=== PATIENT | male | born 1990 | race Caucasian/White ===

== ENCOUNTER 2016-09-10 09:28 | Emergency (ER) | payer MEDICAID, OTHER ==
[~2016-09-10] VITALS: Ht 172.7 cm; Wt 110.0 kg
[~2016-09-10 09:28] MED LIST: CHLO.12%30 SSP; CLIN150 PO; IBUP800T23 PO
[2016-09-10 09:30] VITALS: BP 162/70; PULSE 82; RESP 15; TEMP 97.9; O2SAT 98
--- NOTE | 2016-09-10 09:40 | PD ---
HPI Chief Complaint: GI Complaint Time Seen by Provider: 09:40 Travel History International Travel<30 days: No Contact w/Intl Traveler<30days: No Traveled to known affect area: No History of Present Illness HPI 26-year-old male came to the emergency room with history of vomiting, diarrhea and abdominal pain for past 2 days. Patient says the pain is getting worse. Patient says he's having vomiting and diarrhea 6-7 times a day. The last episode was one hour ago. He points to the left upper and lower quadrant as the area of his pain. No other radiation of the pain. No aggravating or relieving factors identified. No blood in his stool. No history of fever or chills. Vital signs were stable. Patient appears to be in distress. He is otherwise a healthy person. [facility] Past Medical History Narrative Medical List of his past medical, surgical, social and family history was reviewed from the nursing note. Diminished Hearing: No Social History Alcohol Use: Yes (EVERY 2 WEEKS) Tobacco Use: Yes (1 CIG A DAY) Substance Use: No Allergies-Medications (Allergen,Severity, Reaction): Coded Allergies: No Known Allergies (Unverified , 09/10/16) Comments No known drug allergies. Reported Meds & Prescriptions Reported Meds & Active Scripts Active Bentyl (Dicyclomine HCl) 10 Mg Cap 10 Mg PO TID PRN Zofran Odt (Ondansetron Odt) 4 Mg Tab 4 Mg SL Q6HR PRN Narrative Medication List of his home medications reviewed from the nursing note. Review of Systems Except as stated in HPI: all other systems reviewed are Neg Physical Exam Narrative GENERAL: Awake, alert, moderate distress, obese SKIN: Focused skin assessment warm/dry. HEAD: Atraumatic. Normocephalic. EYES: Pupils equal and round. No scleral icterus. No injection or drainage. ENT: No nasal bleeding or discharge. Dry mucous membrane and coated tongue. NECK: Trachea midline. No JVD. CARDIOVASCULAR: Regular rate and rhythm. No murmur appreciated. RESPIRATORY: No accessory muscle use. Clear to auscultation. Breath sounds equal bilaterally. GASTROINTESTINAL: Abdomen soft, left lower quadrant tenderness, nondistended. Hepatic and splenic margins not palpable. MUSCULOSKELETAL: No obvious deformities. No clubbing. No cyanosis. No edema. NEUROLOGICAL: Awake and alert. No obvious cranial nerve deficits. Motor grossly within normal limits. Normal speech. PSYCHIATRIC: Appropriate mood and affect; insight and judgment normal. Data Data Last Documented VS Vital Signs Date Time Temp Pulse Resp B/P Pulse Ox O2 Delivery O2 Flow Rate FiO2 09/10/16 09:30 97.9 82 15 162/70 98 Orders Complete Blood Count With Diff (09/10/16 09:47) Comprehensive Metabolic Panel (09/10/16 09:47) Lipase (09/10/16 09:47) Ct Abd/Pel W/O Iv Contrast (09/10/16 09:47) Iv Access Insert/Monitor (09/10/16 09:47) Ecg Monitoring (09/10/16 09:47) Oximetry (09/10/16 09:47) Morphine Inj (Morphine Inj) (09/10/16 10:00) Ondansetron Inj (Zofran Inj) (09/10/16 10:00) Sodium Chlor 0.9% 1000 Ml Inj (Ns 1000 M (09/10/16 09:47) Sodium Chloride 0.9% Flush (Ns Flush) (09/10/16 10:00) Labs Laboratory Tests Test 09/10/16 09:45 White Blood Count 12.5 TH/MM3 Red Blood Count 6.09 MIL/MM3 Hemoglobin 15.7 GM/DL Hematocrit 48.2 % Mean Corpuscular Volume 79.2 FL Mean Corpuscular Hemoglobin 25.8 PG Mean Corpuscular Hemoglobin 32.6 % Concent Red Cell Distribution Width 14.2 % Platelet Count 386 TH/MM3 Mean Platelet Volume 7.1 FL Neutrophils (%) (Auto) 70.2 % Lymphocytes (%) (Auto) 20.9 % Monocytes (%) (Auto) 7.1 % Eosinophils (%) (Auto) 1.3 % Basophils (%) (Auto) 0.5 % Neutrophils # (Auto) 8.8 TH/MM3 Lymphocytes # (Auto) 2.6 TH/MM3 Monocytes # (Auto) 0.9 TH/MM3 Eosinophils # (Auto) 0.2 TH/MM3 Basophils # (Auto) 0.1 TH/MM3 CBC Comment DIFF FINAL Differential Comment Sodium Level 134 MEQ/L Potassium Level 3.3 MEQ/L Chloride Level 96 MEQ/L Carbon Dioxide Level 27.8 MEQ/L Anion Gap 10 MEQ/L Blood Urea Nitrogen 17 MG/DL Creatinine 1.05 MG/DL Estimat Glomerular Filtration 85 ML/MIN Rate Random Glucose 90 MG/DL Calcium Level 10.2 MG/DL Total Bilirubin 1.3 MG/DL Aspartate Amino Transf 345 U/L (AST/SGOT) Alanine Aminotransferase 582 U/L (ALT/SGPT) Alkaline Phosphatase 143 U/L Total Protein 8.1 GM/DL Albumin 4.3 GM/DL Lipase 50 U/L MDM Medical Decision Making Medical Screen Exam Complete: Yes Emergency Medical Condition: Yes Medical Record Reviewed: Yes Differential Diagnosis Acute diverticulitis, colitis, acute gastroenteritis Narrative Course 10:22 AM CBC is back and patient has some leukocytosis. Awaiting for the chemistry, UA and the CT scan to be done and resulted. Patient was given IV fluid bolus and medicated for pain. 10:52 AM based on the blood test result which shows significantly high liver function enzymes and bilirubin I went back and asked the patient how much he exactly drinks. He says that last night he drank 6 beers and a shot of moonshine. Patient says he used to drink heavy up until he was 24 years old. Now he does not drink every day but occasionally when he does he drinks very heavily. I have expressed to him my concerns regarding his drinking and his elevated liver enzymes. I don't think his liver enzymes and hepatis steatosis seen on the CT has anything to do with his abdominal pain today since they were all on the left side. Plus he has vomiting and diarrhea. I've also asked him not to take any medication that has Tylenol base in it. Patient understands. I am comfortable discharging him home. He has not had anymore episode of vomiting and diarrhea since. Procedures EKG Prior to Arrival: No Diagnosis Primary Impression: Acute gastroenteritis Additional Impressions: Colitis Alcoholic hepatitis Qualified Code: K70.10 - Alcoholic hepatitis without ascites Referrals: Primary Care Physician Additional Instructions: Please return to the ER if the condition worsens or any other new concerns. You should not be drinking any alcohol or any medication that has Tylenol in it since her liver functions are not doing good. You need to see your primary care in 3 weeks after complete alcohol abstinence to get your blood test repeated for liver function. Take the medications as per the prescription direction. Med/Other Pt SpecificInfo: Prescription(s) given Scripts Dicyclomine (Bentyl)10 Mg Cap10 Mg PO TID PRN (Bowel Management) #10 CAP Ref 0 Prov:Ana House MD 09/10/16 Ondansetron Odt (Zofran Odt)4 Mg Tab4 Mg SL Q6HR PRN (Nausea/Vomiting) #10 TAB Ref 0 Prov:Ana House MD 09/10/16 Disposition: 01 DISCHARGE HOME Condition: Stable Ana House MD Sep 10, 2016 09:40
[2016-09-10] MEDS ORDERED: SODIUM CHLOR 0.9% 1000 ML INJ 1,000 ML IV SCH (09:47)
[2016-09-10] MEDS ORDERED: ONDANSETRON HCL 4 MG/2 ML VIAL IVP ONE (10:00)
[2016-09-10] MEDS ORDERED: MORPHINE SULFATE 4 MG/ML INJ IV PUSH ONE (10:00)
[2016-09-10] MEDS ORDERED: SODIUM CHLORIDE 0.9% FLUSH 10 ML FLUSH IV FLUSH PRN (10:00)
[2016-09-10 10:03] LABS: AUTOMATED NEUTROPHIL # 8.8 TH/MM3 (1.8-7.7); BASOPHIL # 0.1 TH/MM3 (0-0.2); BASOPHIL % 0.5 % (0.0-2.0); EOSINOPHIL # 0.2 TH/MM3 (0-0.4); EOSINOPHIL % 1.3 % (0.0-4.0); HEMATOCRIT 48.2 % (39.0-51.0); HEMO FLAGS DIFF FINAL; LYMPH % 20.9 % (9.0-44.0); LYMPHOCYTE # 2.6 TH/MM3 (1.0-4.8); MEAN CELL VOLUME 79.2 FL (80.0-100.0); MEAN CORPUSCULAR HEMOGLOBIN 25.8 PG (27.0-34.0); MEAN CORPUSCULAR HGB CONC 32.6 % (32.0-36.0); MONO % 7.1 % (0.0-8.0); NEUT % 70.2 % (16.0-70.0); PLATELET COUNT 386 TH/MM3 (150-450); RED BLOOD COUNT 6.09 MIL/MM3 (4.50-5.90); RED CELL DISTRIBUTION WIDTH 14.2 % (11.6-17.2); WHITE BLOOD COUNT 12.5 TH/MM3 (4.0-11.0)
[2016-09-10 10:28] LABS: ALT (GPT) 582 U/L (12-78); ANION GAP 10 MEQ/L (5-15); AST (GOT) 345 U/L (15-37); BICARBONATE 27.8 MEQ/L (21.0-32.0); BLOOD UREA NITROGEN 17 MG/DL (7-18); CHLORIDE 96 MEQ/L (98-107); GLOMERULAR FILTRATION RATE 85 ML/MIN (>89); POTASSIUM 3.3 MEQ/L (3.5-5.1); SODIUM (NA) 134 MEQ/L (136-145)
[2016-09-10 10:31] LABS: ALKALINE PHOSPHATASE 143 U/L (45-117); TOTAL BILIRUBIN ADULT 1.3 MG/DL (0.2-1.0)
--- NOTE | 2016-09-10 10:38 | RADRPT ---
EXAM DATE/TIME: 09/10/2016 10:23 [facility] COMPARISON: No previous studies available for comparison. INDICATIONS : Nausea, vomiting, diarrhea for two days. ORAL CONTRAST: No oral contrast ingested. RADIATION DOSE: 15.41 CTDIvol (mGy) MEDICAL HISTORY : None SURGICAL HISTORY : None. ENCOUNTER: Initial ACUITY: 1 day PAIN SCALE: 0/10 LOCATION: Bilateral upper quadrant TECHNIQUE: Volumetric scanning of the abdomen and pelvis was performed. Using automated exposure control and ad justment of the mA and/or kV according to patient size, radiation dose was kept as low as reasonably achievable to obtain optimal diagnostic quality images. DICOM format image data is available electro nically for review and comparison. FINDINGS: LOWER LUNGS: The visualized lower lungs are clear. LIVER: Mild diffuse low density without lesion. There is no dilation of the biliary tree. No calcified gal lstones. SPLEEN: Normal size without lesion. PANCREAS: Within normal limits. KIDNEYS: Normal in size and shape. There is no mass, stone, or hydronephrosis. ADRENAL GLANDS: Within normal limits. VASCULAR: There is no aortic aneurysm. BOWEL/MESENTERY: The stomach and small bowel demonstrate no acute finding. Appendix is normal. There is mild wall thic kening of the ascending colon and proximal transverse colon. No perienteric inflammation is appreciat ed. There is no free intraperitoneal air or fluid. ABDOMINAL WALL: Within normal limits. RETROPERITONEUM: There is no lymphadenopathy. BLADDER: No wall thickening or mass. REPRODUCTIVE: Within normal limits. INGUINAL: There is no lymphadenopathy or hernia. MUSCULOSKELETAL: Within normal limits for patient age. There is a bone island in the right acetabulum. CONCLUSION: 1. Mild wall thickening of the right colon and proximal transverse colon without surrounding inflamma tory change. However, this could represent a mild colitis in the appropriate clinical setting. No oth er acute finding is identified on this noncontrast examination. 2. Hepatic steatosis. Martin Turk MD on September 10, 2016 at 10:33 Board Certified Radiologist. This report was verified electronically.
[2016-09-10] MEDS ORDERED: DICY10 PO (11:00)
[2016-09-10] MEDS ORDERED: ZOFR4TAB3 SL (11:00)
== END 2016-09-10 11:42 | disposition home or self-care (01) ==
LOC: NEPD 09:28
DX: K52.9 Noninfective gastroenteritis and colitis, unspecified (principal); K70.10 Alcoholic hepatitis without ascites; F17.210 Nicotine dependence, cigarettes, uncomplicated
CPT/HCPCS: 74176; 80053; 83690; 85025; 96374; 96375; 99285; J2270; J2405; J7030

== ENCOUNTER 2017-03-14 18:43 | Observation (INO) | payer MEDICAID ==
[~2017-03-14] VITALS: Ht 175.3 cm; Wt 102.0 kg
[~2017-03-14 18:43] MED LIST changes: -CHLO.12%30 SSP; -CLIN150 PO; +DICY10 PO; -IBUP800T23 PO; +ZOFR4TAB3 SL
[2017-03-14 18:46] VITALS: BP 125/67; PULSE 130; RESP 18; TEMP 98.3; O2SAT 91
[2017-03-14] MEDS ORDERED: NALOXONE HCL 0.4 MG/ML AMP IV PUSH PRN ×2 (19:00→22:00)
[2017-03-14] MEDS ORDERED: NALOXONE HCL 0.4 MG/ML AMP ONE (19:01)
[2017-03-14] MEDS ORDERED: ONDANSETRON HCL 4 MG/2 ML VIAL ONE (19:01)
[2017-03-14 19:07] VITALS: BP 112/58; PULSE 144; RESP 18; O2SAT 100
--- NOTE | 2017-03-14 19:12 | PD ---
HPI Chief Complaint: Altered Mental Status Time Seen by Provider: 19:00 Travel History International Travel<30 days: No Contact w/Intl Traveler<30days: No Traveled to known affect area: No History of Present Illness HPI 27-year-old male with found unresponsive in the bathroom this evening at home. Patient was found by his female partner. EMS was called. Patient woke up when EMS arrived. Patient with transfer to ED for evaluation. Patient has history of Dilaudid and heroine abuse. Patient has history of alcohol an tobacco abuse in the past. Patient denies any alcohol or drug abuse recently. Patient denies any headache. Patient denies any chest pain or shortness of breath. Patient denies abdominal pain. Patient denies any focal weakness or numbness of the extremity. Patient denies any suicidal ideation. Patient has history of hypertension. Patient is not on the medication now. PFSH Past Medical History Medical History: Denies Significant Hx Diminished Hearing: No Tetanus Vaccination: > 5 Years Influenza Vaccination: No Past Surgical History Surgical History: No Previous Surgery Social History Alcohol Use: Yes (OCCASIONAL ) Tobacco Use: Yes (1 PPD) Substance Use: No Allergies-Medications (Allergen,Severity, Reaction): Coded Allergies: No Known Allergies (Unverified Adverse Reaction, Unknown, 03/14/17) Reported Meds & Prescriptions Reported Meds & Active Scripts Active No Active Prescriptions or Reported Medications Review of Systems General / Constitutional: No: Fever Eyes: No: Visual changes HENT: No: Headaches Cardiovascular: No: Chest Pain or Discomfort Respiratory: No: Shortness of Breath Gastrointestinal: No: Abdominal Pain Genitourinary: No: Dysuria Musculoskeletal: No: Pain Skin: No Rash Neurologic: No: Weakness Psychiatric: No: Depression Endocrine: No: Polydipsia Hematologic/Lymphatic: No: Easy Bruising Physical Exam Narrative GENERAL: Well-nourished, well-developed patient. SKIN: Focused skin assessment warm/dry. HEAD: Normocephalic. EYES: No scleral icterus. No injection or drainage. NECK: Supple, trachea midline. No JVD or lymphadenopathy. CARDIOVASCULAR: Regular rate and rhythm without murmurs, gallops, or rubs. RESPIRATORY: Breath sounds equal bilaterally. No accessory muscle use. GASTROINTESTINAL: Abdomen soft, non-tender, nondistended. MUSCULOSKELETAL: No cyanosis, or edema. BACK: Nontender without obvious deformity. No CVA tenderness. Neurologic exam: Patient with mild lethargy however answer questions appropriately. Patient moves all extremities well. No obvious focal neurological deficit. Data Data Last Documented VS Vital Signs Date Time Temp Pulse Resp B/P (MAP) Pulse Ox O2 Delivery O2 Flow Rate FiO2 03/14/17 19:07 144 18 112/58 (76) 100 Nasal Cannula 2.00 03/14/17 18:46 98.3 Orders Orders Naloxone Inj (Narcan Inj) (03/14/17 19:00) Naloxone Inj (Narcan Inj) (03/14/17 19:01) Ondansetron Inj (Zofran Inj) (03/14/17 19:01) Electrocardiogram (03/14/17 19:09) Complete Blood Count With Diff (03/14/17 19:09) Comprehensive Metabolic Panel (03/14/17 19:09) Creatine Kinase (Cpk) (03/14/17 19:09) Troponin I (03/14/17 19:09) Prothrombin Time / Inr (Pt) (03/14/17 19:09) Act Partial Throm Time (Ptt) (03/14/17 19:09) Thyroid Stimulating Hormone (03/14/17 19:09) Chest, Single Ap (03/14/17 19:09) Ct Brain W/O Iv Contrast(Rout) (03/14/17 19:09) Iv Access Insert/Monitor (03/14/17 19:09) Ecg Monitoring (03/14/17 19:09) Oximetry (03/14/17 19:09) Drug Screen, Random Urine (03/14/17 19:09) Alcohol (Ethanol) (03/14/17 19:09) Salicylates (Aspirin) (03/14/17 19:09) Tylenol (Acetaminophen) (03/14/17 19:09) Sodium Chlor 0.9% 1000 Ml Inj (Ns 1000 M (03/14/17 19:15) Sodium Chlor 0.9% 1000 Ml Inj (Ns 1000 M (03/14/17 19:15) Ondansetron Inj (Zofran Inj) (03/14/17 19:15) Ct Cerv Spine W/O Contrast (03/14/17 19:17) MDM Medical Decision Making Medical Screen Exam Complete: Yes Emergency Medical Condition: Yes Differential Diagnosis Differential diagnoses including drug overdose, electrolyte imbalance, dehydration, TIA, CVA, sepsis. Narrative Course 27-year-old male with found unresponsive in the bathroom. Patient woke up when EMS arrived. Patient got drowsy in the ED. Narcan 0.5 mg IV given. Normal saline solution 1 25 cc an hour. Scripts No Active Prescriptions or Reported Meds Mihir Lyon MD Mar 14, 2017 19:12
[2017-03-14] MEDS ORDERED: SODIUM CHLOR 0.9% 1000 ML INJ 1,000 ML IV SCH (19:15)
[2017-03-14] MEDS ORDERED: ONDANSETRON HCL 4 MG/2 ML VIAL IV ONE (19:15)
[2017-03-14] MEDS ORDERED: SODIUM CHLOR 0.9% 1000 ML INJ 1,000 ML IV ONE (19:15)
--- NOTE | 2017-03-14 19:17 | PD ---
Physical Exam Narrative General: The patient is a well-developed well-nourished male in no acute distress. The patient is awake and alert after receiving Narcan 0.4 mg IV Head and Neck exam: Head is normocephalic atraumatic. Eyes: EOMI, pupils are equal round and reactive to light. Nose: Midline septum with pink mucous membranes Mouth: Dentition unremarkable. Moist mucus membranes. Posterior oropharynx is not erythematous. No tonsillar hypertrophy. Uvula midline. Airway patent. Neck: No palpable lymphadenopathy. No nuchal rigidity. No thyromegaly. Cardiovascular: Sinus tachycardia that ranges in the 130s to 140 without murmurs, gallops, or rubs. No pulse deficit to the extremities on simultaneous auscultation and palpation of his radial artery. Lungs: Clear to auscultation bilaterally. No wheezes, rhonchi, or rales. Abdomen: Soft, without tenderness to palpation in all 4 quadrants of the abdomen. No guarding, rebound, or rigidity. Normal bowel sounds are audible. No tenderness on palpation of McBurney's point. Extremities: No clubbing, cyanosis, or edema. 2+ pulses in all 4 extremities. No calf tenderness on palpation. Neurologic Exam: Grossly nonfocal. Skin Exam: No rash noted. Intact skin that is warm and dry. Data Data Last Documented VS Vital Signs Date Time Temp Pulse Resp B/P (MAP) Pulse Ox O2 Delivery O2 Flow Rate FiO2 03/14/17 20:00 74 16 124/75 (91) 96 Room Air 03/14/17 19:07 2.00 03/14/17 18:46 98.3 Orders Orders Naloxone Inj (Narcan Inj) (03/14/17 19:00) Naloxone Inj (Narcan Inj) (03/14/17 19:01) Ondansetron Inj (Zofran Inj) (03/14/17 19:01) Electrocardiogram (03/14/17 19:09) Complete Blood Count With Diff (03/14/17 19:09) Comprehensive Metabolic Panel (03/14/17 19:09) Creatine Kinase (Cpk) (03/14/17 19:09) Troponin I (03/14/17 19:09) Prothrombin Time / Inr (Pt) (03/14/17 19:09) Act Partial Throm Time (Ptt) (03/14/17 19:09) Thyroid Stimulating Hormone (03/14/17 19:09) Chest, Single Ap (03/14/17 19:09) Ct Brain W/O Iv Contrast(Rout) (03/14/17 19:09) Iv Access Insert/Monitor (03/14/17 19:09) Ecg Monitoring (03/14/17 19:09) Oximetry (03/14/17 19:09) Drug Screen, Random Urine (03/14/17 19:09) Alcohol (Ethanol) (03/14/17 19:09) Salicylates (Aspirin) (03/14/17 19:09) Tylenol (Acetaminophen) (03/14/17 19:09) Sodium Chlor 0.9% 1000 Ml Inj (Ns 1000 M (03/14/17 19:15) Sodium Chlor 0.9% 1000 Ml Inj (Ns 1000 M (03/14/17 19:15) Ondansetron Inj (Zofran Inj) (03/14/17 19:15) Ct Cerv Spine W/O Contrast (03/14/17 19:17) Ct Pulmonary Angiogram (03/14/17 20:15) Iohexol 350 Inj (Omnipaque 350 Inj) (03/14/17 20:50) Admit Order (Ed Use Only) (03/14/17 21:32) Labs Laboratory Tests Test 03/14/17 18:55 White Blood Count 14.3 TH/MM3 Red Blood Count 5.68 MIL/MM3 Hemoglobin 14.8 GM/DL Hematocrit 45.4 % Mean Corpuscular Volume 79.9 FL Mean Corpuscular Hemoglobin 26.1 PG Mean Corpuscular Hemoglobin Concent 32.7 % Red Cell Distribution Width 13.6 % Platelet Count 357 TH/MM3 Mean Platelet Volume 7.4 FL Neutrophils (%) (Auto) 75.9 % Lymphocytes (%) (Auto) 15.9 % Monocytes (%) (Auto) 4.6 % Eosinophils (%) (Auto) 3.1 % Basophils (%) (Auto) 0.5 % Neutrophils # (Auto) 10.8 TH/MM3 Lymphocytes # (Auto) 2.3 TH/MM3 Monocytes # (Auto) 0.7 TH/MM3 Eosinophils # (Auto) 0.4 TH/MM3 Basophils # (Auto) 0.1 TH/MM3 CBC Comment DIFF FINAL Differential Comment Prothrombin Time 10.5 SEC Prothromb Time International Ratio 1.0 RATIO Activated Partial Thromboplast Time 22.9 SEC Blood Urea Nitrogen 9 MG/DL Creatinine 1.14 MG/DL Random Glucose 138 MG/DL Total Protein 7.2 GM/DL Albumin 3.7 GM/DL Calcium Level 8.7 MG/DL Alkaline Phosphatase 102 U/L Aspartate Amino Transf (AST/SGOT) 31 U/L Alanine Aminotransferase (ALT/SGPT) 25 U/L Total Bilirubin 0.2 MG/DL Sodium Level 142 MEQ/L Potassium Level 3.2 MEQ/L Chloride Level 107 MEQ/L Carbon Dioxide Level 28.3 MEQ/L Anion Gap 7 MEQ/L Estimat Glomerular Filtration Rate 77 ML/MIN Total Creatine Kinase 115 U/L Troponin I 0.82 NG/ML Thyroid Stimulating Hormone 3rd Gen 2.580 uIU/ML Salicylates Level LESS THAN 1.7 MG/DL Acetaminophen Level LESS THAN 2.0 MCG/ML Ethyl Alcohol Level LESS THAN 3 MG/DL MDM Medical Record Reviewed: Yes Supervised Visit with KENDALL: No Interpretation(s) Last Impressions CT Angiography 03/14/172014 Signed Impressions: Service Date/Time: Tuesday, March 14, 2017 20:23 - CONCLUSION: 1. Suboptimal exam but no evidence for pulmonary embolus. 2. Groundglass opacity in the upper lobes, nonspecific. Differential diagnosis includes some form of hypersensitivity type reaction or inflammatory change. Gen Chaney MD Cervical Spine CT 03/14/[id number] Signed Impressions: Service Date/Time: Tuesday, March 14, 2017 19:43 - CONCLUSION: Normal examination for a patient of this age. Gen Chaney MD Head CT [id number]/14/[id number] Signed Impressions: Service Date/Time: Tuesday, March 14, 2017 19:43 - CONCLUSION: 1. No acute intracranial abnormalities. Gen Chaney MD Chest X-Ray [id number]/14/[id number] Signed Impressions: Service Date/Time: Tuesday, March 14, 2017 19:20 - CONCLUSION: 1. No acute findings. Gen Chaney MD Narrative Course During the course of the patients emergency department visit, the patients history, examination, and differential diagnosis were reviewed with the patient. The patient was placed on a clinical research monitor with oximetry and frequent blood pressure monitoring. The patient had IV access obtained and blood work sent for analysis. The patient was initially evaluated by Dr. Lyon. Please see his complete history and physical. The patient's case was checked out to me at the conclusion of his shift. The patient was found by his significant other face down in the bathroom. He was unresponsive. The patient has an abrasion to the left side of his forehead/face. The patient denies using any drugs, however his significant other found a syringe in the bathroom. He does have a history of IV drug use in the past. He reports a prior history of oxycodone use. He went through a detox program last in January. The patient on arrival became intermittently drowsy and received Narcan which improved his mental status, however he was slightly tachycardic when he first came in which worsened with Narcan administration. The patient had an ECG done on arrival that shows a sinus tachycardia rate of 121, QRS duration 105 ms, QTC [address] segment elevation The patient was initially provided normal saline 1 L IV fluid bolus, Zofran 4 mg IV. The patients laboratory studies were reviewed and remarkable for a white count of 14.3, hemoglobin 14.8, platelets 357 with 75.9 neutrophils. CMP is remarkable for potassium of 3.2 which was supplemented orally, glucose 138, troponin I 0.82, CPK 1:15, TSH 2.58, PT 10.5, PTT 22.9. Acetaminophen less than 2, alcohol less than 3, salicylate less than 1.7 Radiology studies were reviewed and remarkable for a chest x-ray that shows no acute cardiopulmonary disease. Ct scan of the head and neck were unremarkable. Given the patient's elevated troponin, tachycardia, hypoxemia on initial arrival , CTA to rule out PE has also been ordered. CTA showed no PE, ground glass appearance of the upper lobes of the lungs. The patient will be admitted to the hospital for continued evaluation and treatment, serial cardiac enzymes. The patients results were discussed with the patient, including the plan of care. I explained that further testing and/ or monitoring is indicated based on the patients history, examination, and/ or laboratory findings. Therefore, I recommended admission for additional evaluation. The patient expressed understanding and was agreeable with this plan. The patient was admitted to the hospital in stable condition and [facility] Physician Communication Physician Communication The patient's case including history, pertinent physical examination findings, and laboratory studies were discussed with Dr. Dominguez. It was agreed that the [facility] would [facility] Diagnosis Primary Impression: Syncope and collapse Additional Impression: Elevated troponin Admitting Information Admitting Physician Requests: Observation Scripts No Active Prescriptions or Reported Meds Marquita Prakash MD Mar 14, 2017 19:17
[2017-03-14 19:44] LABS: AUTOMATED NEUTROPHIL # 10.8 TH/MM3 (1.8-7.7); BASOPHIL # 0.1 TH/MM3 (0-0.2); BASOPHIL % 0.5 % (0.0-2.0); EOSINOPHIL # 0.4 TH/MM3 (0-0.4); EOSINOPHIL % 3.1 % (0.0-4.0); HEMATOCRIT 45.4 % (39.0-51.0); HEMOGLOBIN 14.8 GM/DL (13.0-17.0); LYMPH % 15.9 % (9.0-44.0); LYMPHOCYTE # 2.3 TH/MM3 (1.0-4.8); MEAN CELL VOLUME 79.9 FL (80.0-100.0); MEAN CORPUSCULAR HEMOGLOBIN 26.1 PG (27.0-34.0); MEAN CORPUSCULAR HGB CONC 32.7 % (32.0-36.0); MEAN PLATELET VOLUME 7.4 FL (7.0-11.0); MONO % 4.6 % (0.0-8.0); MONOCYTE # 0.7 TH/MM3 (0-0.9); NEUT % 75.9 % (16.0-70.0); PLATELET COUNT 357 TH/MM3 (150-450); RED BLOOD COUNT 5.68 MIL/MM3 (4.50-5.90); RED CELL DISTRIBUTION WIDTH 13.6 % (11.6-17.2); WHITE BLOOD COUNT 14.3 TH/MM3 (4.0-11.0)
[2017-03-14 19:52] LABS: PROTHROMBIN TIME - PATIENT 10.5 SEC (9.8-11.6)
[2017-03-14 19:58] LABS: ALBUMIN 3.7 GM/DL (3.4-5.0); AST (GOT) 31 U/L (15-37); BICARBONATE 28.3 MEQ/L (21.0-32.0); BLOOD UREA NITROGEN 9 MG/DL (7-18); CALCIUM 8.7 MG/DL (8.5-10.1); CHLORIDE 107 MEQ/L (98-107); CREATININE 1.14 MG/DL (0.60-1.30); GLOMERULAR FILTRATION RATE 77 ML/MIN (>89); GLUCOSE,RANDOM 138 MG/DL (74-106); SODIUM (NA) 142 MEQ/L (136-145)
[2017-03-14 19:59] LABS: ALT (GPT) 25 U/L (12-78)
[2017-03-14 20:00] VITALS: BP 124/75; PULSE 74; RESP 16; O2SAT 96
[2017-03-14 20:04] LABS: ACETAMINOPHEN LESS THAN 2.0 MCG/ML (10.0-30.0)
[2017-03-14 20:09] LABS: ALKALINE PHOSPHATASE 102 U/L (45-117); TOTAL BILIRUBIN ADULT 0.2 MG/DL (0.2-1.0); TOTAL PROTEIN 7.2 GM/DL (6.4-8.2)
[2017-03-14 20:13] LABS: TROPONIN I 0.82 NG/ML (0.02-0.05)
--- NOTE | 2017-03-14 20:19 | RADRPT ---
EXAM DATE/TIME: 03/14/2017 19:20 [facility] COMPARISON: No previous studies available for comparison. INDICATIONS : Syncope. MEDICAL HISTORY : None. SURGICAL HISTORY : None. ENCOUNTER: Initial ACUITY: 1 day PAIN SCORE: 0/10 LOCATION: Bilateral chest FINDINGS: A single view of the chest demonstrates the lungs to be symmetrically aerated without evidence of mas s, infiltrate or effusion. The cardiomediastinal contours are unremarkable. Osseous structures are intact. CONCLUSION: 1. No acute findings. Gen Chaney MD on March 14, 2017 at 20:17 Board Certified Radiologist. This report was verified electronically.
--- NOTE | 2017-03-14 20:31 | RADRPT ---
EXAM DATE/TIME: 03/14/2017 19:43 [facility] COMPARISON: No previous studies available for comparison. INDICATIONS : Found unresponsive. Altered mental status. RADIATION DOSE: 51.32 CTDIvol (mGy) MEDICAL HISTORY : None SURGICAL HISTORY : None. ENCOUNTER: Initial ACUITY: 1 day PAIN SCALE: 0/10 LOCATION: cranial TECHNIQUE: Multiple contiguous axial images were obtained of the head. Using automated exposure control and adj ustment of the mA and/or kV according to patient size, radiation dose was kept as low as reasonably a chievable to obtain optimal diagnostic quality images. DICOM format image data is available electro nically for review and comparison. FINDINGS: CEREBRUM: The ventricles are normal for age. No evidence of midline shift, mass lesion, hemorrhage or acute in farction. No extra-axial fluid collections are seen. POSTERIOR FOSSA: The cerebellum and brainstem are intact. The 4th ventricle is midline. The cerebellopontine angle i s unremarkable. EXTRACRANIAL: The visualized portion of the orbits is intact. SKULL: The calvaria is intact. No evidence of skull fracture. CONCLUSION: 1. No acute intracranial abnormalities. Gen Chaney MD on March 14, 2017 at 20:28 Board Certified Radiologist. This report was verified electronically.
--- NOTE | 2017-03-14 20:32 | RADRPT ---
EXAM DATE/TIME: 03/14/2017 19:43 [facility] COMPARISON: No previous studies available for comparison. INDICATIONS : Found unresponsive. Altered mental status. RADIATION DOSE: 42.99 CTDIvol (mGy) MEDICAL HISTORY : None SURGICAL HISTORY : None. ENCOUNTER: Initial ACUITY: 1 day PAIN SCALE: 0/10 LOCATION: neck TECHNIQUE: Volumetric scanning of the cervical spine was performed. Multiplanar reconstructions in the sagittal, coronal and oblique axial planes were performed. Using automated exposure control and adjustment o f the mA and/or kV according to patient size, radiation dose was kept as low as reasonably achievable to obtain optimal diagnostic quality images. DICOM format image data is available electronically f or review and comparison. FINDINGS: VERTEBRAE: Normal vertebral body height. ALIGNMENT: No evidence of subluxation. C2-C3: The bony spinal canal is normal in size. No evidence of disc bulge or herniation. The neural forami na are bilaterally patent. C3-C4: The bony spinal canal is normal in size. No evidence of disc bulge or herniation. The neural forami na are bilaterally patent. C4-C5: The bony spinal canal is normal in size. No evidence of disc bulge or herniation. The neural forami na are bilaterally patent. C5-C6: The bony spinal canal is normal in size. No evidence of disc bulge or herniation. The neural forami na are bilaterally patent. C6-C7: The bony spinal canal is normal in size. No evidence of disc bulge or herniation. The neural forami na are bilaterally patent. C7-T1: The bony spinal canal is normal in size. No evidence of disc bulge or herniation. The neural forami na are bilaterally patent. CONCLUSION: Normal examination for a patient of this age. Gen Chaney MD on March 14, 2017 at 20:29 Board Certified Radiologist. This report was verified electronically.
[2017-03-14] MEDS ORDERED: IOHEXOL 350 MG/ML 10 ML VIAL (for RAD DIAG) IVCONTRAST ONE (20:50)
--- NOTE | 2017-03-14 21:20 | RADRPT ---
EXAM DATE/TIME: 03/14/2017 20:23 [facility] COMPARISON: No previous studies available for comparison. INDICATIONS : Syncope and elevated troponin. IV CONTRAST: 100 cc Omnipaque 350 (iohexol) IV RADIATION DOSE: 10.96 CTDIvol (mGy) MEDICAL HISTORY : None SURGICAL HISTORY : None. ENCOUNTER: Initial ACUITY: 1 day PAIN SCALE: 0/10 LOCATION: Bilateral chest TECHNIQUE: Volumetric scanning of the chest was performed using a pulmonary embolism protocol MIP images were re constructed. Using automated exposure control and adjustment of the mA and/or kV according to patien t size, radiation dose was kept as low as reasonably achievable to obtain optimal diagnostic quality images. DICOM format image data is available electronically for review and comparison. Follow-up recommendations for detected pulmonary nodules are based at a minimum on nodule size and pa tient risk factors according to Fleischner Society Guidelines. FINDINGS: Contrast bolus is suboptimal but no filling defects identified to suggest pulmonary embolus. Recent g roundglass opacity in the upper lungs, left greater than right which is nonspecific. Differential jeffy gnosis includes hypersensitivity type reaction or mild pneumonitis. No effusion. No adenopathy. CONCLUSION: 1. Suboptimal exam but no evidence for pulmonary embolus. 2. Groundglass opacity in the upper lobes, nonspecific. Differential diagnosis includes some form of hypersensitivity type reaction or inflammatory change. Gen Chaney MD on March 14, 2017 at 21:15 Board Certified Radiologist. This report was verified electronically.
[2017-03-14] MEDS ORDERED: IOHEXOL 350 MG/ML 50 ML BTL (for Cath Lab) OTHER ONE (21:34)
[2017-03-14 22:00] VITALS: BP 117/60; PULSE 88; RESP 16; O2SAT 97
[2017-03-14] MEDS ORDERED: POTASSIUM CHLORIDE 25 MEQ EFFERVESCENT TAB PO ONE (22:00)
[2017-03-14] MEDS ORDERED: SODIUM CHLORIDE 0.9% FLUSH 10 ML FLUSH IV FLUSH PRN (22:00)
[2017-03-14] MEDS ORDERED: ASPIRIN 81 MG CHEW TAB CHEW ONE (22:00)
[2017-03-15] VITALS (8 sets, daily range): BP systolic 116–138; BP diastolic 58–82; PULSE 65–90; RESP 18; TEMP 98–98.4; O2SAT 98–99
--- NOTE | 2017-03-15 00:34 | HHI.HP ---
[facility] Service [facility] Primary Care Physician No Primary Care Physician Admission Diagnosis Opiate overdose, elevated troponin Diagnoses: Travel History International Travel<30 Days: No Contact w/Intl Traveler <30 Da: No Traveled to Known Affected Are: No History of Present Illness 27-year-old male with a past medical history significant for IV drug abuse brought to the emergency room department after being found unresponsive in the bathroom this evening at home. The patient was found by his girlfriend who reported that her mother had to perform CPR as the patient was not breathing. EMS was called and per ED reports the patient awoke when they arrived. The patient admits to injecting both Dilaudid and heroin prior to the incident. Patient is status post Narcan administration in the ED. The patient was found to have elevated troponin of 0.82. EKG showed sinus tachycardia without ST segment elevations or depressions. Patient denies any chest pain/shortness of breath. Review of Systems Denies fever or chills Denies blurry vision, otorrhea, rhinorrhea Denies sore throat and cough No chest pain, palpitations No shortness of breath or wheezing No abdominal pain Denies constipation/diarrhea/nausea/vomiting Denies muscle pain Denies focal weakness No rashes Past Family Social History Past Medical History None Past Surgical History None Reported Medications None Allergies: Coded Allergies: No Known Allergies (Unverified Allergy, Unknown, 03/14/17) Family History No family history of CAD/DM Social History Smokes approximately one pack per day. History of IV drug abuse, significant for opiates. Occasional alcohol. Physical Exam Vital Signs Vital Signs Date Time Temp Pulse Resp B/P (MAP) Pulse Ox O2 Delivery O2 Flow Rate FiO2 03/14/17 22:35 03/14/17 22:00 88 16 117/60 (79) 97 Room Air 03/14/17 20:00 74 16 124/75 (91) 96 Room Air 03/14/17 19:07 144 18 112/58 (76) 100 Nasal Cannula 2.00 03/14/17 18:55 132 18 98 Nasal Cannula 2.00 03/14/17 18:46 98.3 130 18 125/67 (86) 91 Physical Exam GENERAL: male sitting up in bed eating SKIN: No rashes, ecchymoses or lesions. Cool and dry. HEAD: Atraumatic. Normocephalic. No temporal or scalp tenderness. EYES: Pupils equal round and reactive. Extraocular motions intact. No scleral icterus. No injection or drainage. ENT: Nose without bleeding, purulent drainage or septal hematoma. Throat without erythema, tonsillar hypertrophy or exudate. Uvula midline. Airway patent. NECK: Trachea midline. No JVD or lymphadenopathy. Supple, nontender, no meningeal signs. CARDIOVASCULAR: Regular rate and rhythm without murmurs, gallops, or rubs. RESPIRATORY: Clear to auscultation. Breath sounds equal bilaterally. No wheezes , rales, or rhonchi. GASTROINTESTINAL: Abdomen soft, non-tender, nondistended. No hepato-splenomegaly , or palpable masses. No guarding. MUSCULOSKELETAL: Extremities without clubbing, cyanosis, or edema. No joint tenderness, effusion, or edema noted. No calf tenderness. NEUROLOGICAL: Awake and alert. Cranial nerves II through XII intact. Motor and sensory grossly within normal limits. Normal speech. Laboratory Laboratory Tests Test 03/14/17 18:55 White Blood Count 14.3 Red Blood Count 5.68 Hemoglobin 14.8 Hematocrit 45.4 Mean Corpuscular Volume 79.9 Mean Corpuscular Hemoglobin 26.1 Mean Corpuscular Hemoglobin Concent 32.7 Red Cell Distribution Width 13.6 Platelet Count 357 Mean Platelet Volume 7.4 Neutrophils (%) (Auto) 75.9 Lymphocytes (%) (Auto) 15.9 Monocytes (%) (Auto) 4.6 Eosinophils (%) (Auto) 3.1 Basophils (%) (Auto) 0.5 Neutrophils # (Auto) 10.8 Lymphocytes # (Auto) 2.3 Monocytes # (Auto) 0.7 Eosinophils # (Auto) 0.4 Basophils # (Auto) 0.1 CBC Comment DIFF FINAL Differential Comment Prothrombin Time 10.5 Prothromb Time International Ratio 1.0 Activated Partial Thromboplast Time 22.9 Blood Urea Nitrogen 9 Creatinine 1.14 Random Glucose 138 Total Protein 7.2 Albumin 3.7 Calcium Level 8.7 Alkaline Phosphatase 102 Aspartate Amino Transf (AST/SGOT) 31 Alanine Aminotransferase (ALT/SGPT) 25 Total Bilirubin 0.2 Sodium Level 142 Potassium Level 3.2 Chloride Level 107 Carbon Dioxide Level 28.3 Anion Gap 7 Estimat Glomerular Filtration Rate 77 Total Creatine Kinase 115 Troponin I 0.82 Thyroid Stimulating Hormone 3rd Gen 2.580 Salicylates Level LESS THAN 1.7 Acetaminophen Level LESS THAN 2.0 Ethyl Alcohol Level LESS THAN 3 Result Diagram: 03/14/17185403/14/171854 Caprini VTE Risk Assessment Caprini VTE Risk Assessment: No/Low Risk (score <= 1) Caprini Risk Assessment Model Point Value = 1 Point Value = 2 Point Value = 3 Point Value = 5 Age 41-60 Minor surgery BMI > 25 kg/m2 Swollen legs Varicose veins or History of unexplained or recurrent spontaneous Oral contraceptives or hormone replacement Sepsis (< 1 month) Serious lung disease, including pneumonia (< 1 month) Abnormal pulmonary function Acute myocardial infarction Congestive heart failure (< 1 month) History of inflammatory bowel disease Medical patient at bed rest Age 61-74 Arthroscopic surgery Major open surgery (> 45 min) Laparoscopic surgery (> 45 min) Malignancy Confined to bed (> 72 hours) Immobilizing plaster cast Central venous access Age >= 75 History of VTE Family history of VTE Factor V Leiden Prothrombin [id number] Lupus anticoagulant Anticardiolipin antibodies Elevated serum homocysteine Heparin-induced thrombocytopenia Other congenital or acquired thrombophilia Stroke (< 1 month) Elective arthroplasty Hip, pelvis, or leg fracture Acute spinal cord injury (< 1 month) Prophylaxis Regimen Total Risk Factor Score Risk Level Prophylaxis Regimen 0-1 Low Early ambulation 2 Moderate Order ONE of the following: *Sequential Compression Device (SCD) *Heparin 5000 units SQ BID 3-4 Higher Order ONE of the following medications: *Heparin 5000 units SQ TID *Enoxaparin/Lovenox 40 mg SQ daily (WT < 150 kg, CrCl > 30 mL/min) *Enoxaparin/Lovenox 30 mg SQ daily (WT < 150 kg, CrCl > 10-29 mL/min) *Enoxaparin/Lovenox 30 mg SQ BID (WT < 150 kg, CrCl > 30 mL/min) AND/OR *Sequential Compression Device (SCD) 5 or more Highest Order ONE of the following medications: *Heparin 5000 units SQ TID (Preferred with Epidurals) *Enoxaparin/Lovenox 40 mg SQ daily (WT < 150 kg, CrCl > 30 mL/min) *Enoxaparin/Lovenox 30 mg SQ daily (WT < 150 kg, CrCl > 10-29 mL/min) *Enoxaparin/Lovenox 30 mg SQ BID (WT < 150 kg, CrCl > 30 mL/min) AND *Sequential Compression Device (SCD) Assessment and Plan Assessment and Plan Assessment/plan: 1. Opiate overdose Patient admitted to injecting heroin and Dilaudid Status post Narcan administration in the emergency department Narcan when necessary Cessation counseling provided 2. Elevated troponin EKG significant for sinus tachycardia without ST segment elevations or depressions, images reviewed by me Troponin 0.82, likely secondary to CPR ACS rule out pending; serial troponins/EKGs Telemetry FEN Regular diet Electrolytes: s/p PO potassium, follow up BMP Jessica Dominguez MD Mar 15, 2017 00:34
[2017-03-15] MEDS: SODIUM CHLOR 0.9% 1000 ML INJ 1,000 ML IV SCH ×2 (01:57→12:14)
[2017-03-15 02:28] LABS: AUTOMATED NEUTROPHIL # 12.3 TH/MM3 (1.8-7.7); BASOPHIL % 0.3 % (0.0-2.0); EOSINOPHIL % 0.1 % (0.0-4.0); HEMATOCRIT 40.8 % (39.0-51.0); HEMOGLOBIN 13.2 GM/DL (13.0-17.0); LYMPH % 10.3 % (9.0-44.0); LYMPHOCYTE # 1.5 TH/MM3 (1.0-4.8); MEAN CELL VOLUME 78.7 FL (80.0-100.0); MEAN CORPUSCULAR HEMOGLOBIN 25.4 PG (27.0-34.0); MEAN CORPUSCULAR HGB CONC 32.3 % (32.0-36.0); MONO % 4.8 % (0.0-8.0); MONOCYTE # 0.7 TH/MM3 (0-0.9); NEUT % 84.5 % (16.0-70.0); PLATELET COUNT 328 TH/MM3 (150-450); RED BLOOD COUNT 5.18 MIL/MM3 (4.50-5.90); RED CELL DISTRIBUTION WIDTH 13.5 % (11.6-17.2); WHITE BLOOD COUNT 14.6 TH/MM3 (4.0-11.0)
[2017-03-15 02:45] LABS: BICARBONATE 30.1 MEQ/L (21.0-32.0); CALCIUM 8.9 MG/DL (8.5-10.1); CREATININE 0.97 MG/DL (0.60-1.30)
[2017-03-15 03:00] LABS: TROPONIN I 1.36 NG/ML (0.02-0.05)
[2017-03-15 08:27] LABS: TROPONIN I 0.81 NG/ML (0.02-0.05)
[2017-03-15] MEDS: SODIUM CHLORIDE 0.9% FLUSH 10 ML FLUSH IV FLUSH SCH ×2 (09:00→20:56)
--- NOTE | 2017-03-15 13:05 | HHI.PR ---
Subjective Remarks Follow-up drug overdose. Patient has no complaints except for mild neck pain. No radiculopathy, weakness and numbness. Discussed with RN Objective Vitals Vital Signs Date Time Temp Pulse Resp B/P (MAP) Pulse Ox O2 Delivery O2 Flow Rate FiO2 03/15/17 12:06 98.0 65 18 133/78 (96) 99 03/15/17 08:03 98.2 78 18 123/66 (85) 99 03/15/17 04:02 81 03/15/17 03:16 85 18 116/58 (77) 98 03/15/17 00:02 90 03/14/17 22:35 03/14/17 22:00 88 16 117/60 (79) 97 Room Air 03/14/17 20:00 74 16 124/75 (91) 96 Room Air 03/14/17 19:07 144 18 112/58 (76) 100 Nasal Cannula 2.00 03/14/17 18:55 132 18 98 Nasal Cannula 2.00 03/14/17 18:46 98.3 130 18 125/67 (86) 91 I/O 03/14/17 03/14/17 03/14/17 03/15/17 03/15/17 03/15/17 06:59 14:59 22:59 06:59 14:59 22:59 Intake Total 1000 ml Balance 1000 ml Intake IV Total 1000 ml Result Diagram: 03/15/17 0140 03/15/17 [address] Angiography 03/14/172014 Signed Impressions: Service Date/Time: Tuesday, March 14, 2017 20:23 - CONCLUSION: 1. Suboptimal exam but no evidence for pulmonary embolus. 2. Groundglass opacity in the upper lobes, nonspecific. Differential diagnosis includes some form of hypersensitivity type reaction or inflammatory change. Gen Chaney MD Cervical Spine CT 03/14/171916 Signed Impressions: Service Date/Time: Tuesday, March 14, 2017 19:43 - CONCLUSION: Normal examination for a patient of this age. Gen Chaney MD Head CT 03/14/171908 Signed Impressions: Service Date/Time: Tuesday, March 14, 2017 19:43 - CONCLUSION: 1. No acute intracranial abnormalities. Gen Chaney MD Chest X-Ray 03/14/171908 Signed Impressions: Service Date/Time: Tuesday, March 14, 2017 19:20 - CONCLUSION: 1. No acute findings. Gen Chaney MD Objective Remarks GENERAL: Well-developed, well-nourished in no distress SKIN: No rashes, ecchymoses or lesions. Cool and dry. CARDIOVASCULAR: Regular rate and rhythm without murmurs, gallops, or rubs. RESPIRATORY: Clear to auscultation. Breath sounds equal bilaterally. No wheezes , rales, or rhonchi. GASTROINTESTINAL: Abdomen soft, non-tender, nondistended. No guarding. MUSCULOSKELETAL: Extremities without clubbing, cyanosis, or edema. No joint tenderness, effusion, or edema noted. No calf tenderness. NEUROLOGICAL: Awake and alert. Cranial nerves II through XII intact. Motor and sensory grossly within normal limits. Normal speech. Procedures None A/P Problem List: (1) Syncope and collapse ICD Code: R55 - Syncope and collapse Status: Acute Assessment and Plan 1. Heroin and Opiate overdose Patient admitted to injecting heroin and Dilaudid Status post Narcan administration in the emergency department Narcan when necessary Cessation counseling provided 2. Elevated troponin. Denies chest pain EKG significant for sinus tachycardia without ST segment elevations or depressions, images reviewed by me Troponin 0.82, likely secondary to CPR Telemetry Follow-up cardiology who recommended echocardiogram and stress test. Check lipid profile 3. Hyperglycemia. Obtain A1c 4. Leukocytosis likely reactive. No fever. CTA showed groundglass opacity in the upper lobes. Denies respiratory symptoms. Monitor FEN Regular diet Electrolytes: s/p PO potassium, follow up BMP Discharge Planning Possible discharge in the morning pending stress test James Ignacio MD Mar 15, 2017 13:05
--- NOTE | 2017-03-15 13:25 | MB ---
cc: CELESTINE PARKS DO DATE OF CONSULTATION 03/15/2017 REASON FOR CONSULTATION Elevated troponin HISTORY OF PRESENT ILLNESS Mitesh Garcia is a pleasant 27-year-old male who presented to [facility] emergency room on March 14, 2017 due to a cardiac arrest. The patient apparently has a history of IV drug abuse including heroin and Dilaudid, but had been clean since . During this time, his girlfriend had tested his urine multiple times and it was as she is trying to help him quit. He ended up relapsing yesterday and going to the restroom and shooting up both heroin and Dilaudid. He was found unresponsive in the bathroom by his girlfriend and her mother ended up performing CPR as the patient was not breathing. Upon EMS arrival, the patient was starting to wake up. The patient was given Narcan in the ED. He was found to have an elevated troponin and cardiology was consulted for further recommendations. In seeing him, he is currently hemodynamically stable without chest pain or shortness of breath. PAST MEDICAL HISTORY 1. Substance abuse 2. Tobacco abuse PAST SURGICAL HISTORY Denies ALLERGIES NO KNOWN DRUG ALLERGIES. MEDICATIONS Denies FAMILY HISTORY Denies premature coronary artery disease or sudden cardiac within the family. SOCIAL HISTORY The patient smokes approximately a pack per day. He has a history of IV drug abuse with Dilaudid and heroin. He has been clean since February 14 until he relapsed yesterday March 14, 2017. He occasionally drinks alcohol. REVIEW OF SYSTEMS 14-systems were reviewed including osteopathic pertinent positives and negatives as above, otherwise negative. PHYSICAL EXAMINATION VITAL SIGNS: Temperature 98.0, heart rate 65, blood pressure 133/78, respirations 18, pulse ox 99% on room air. GENERAL: The patient appears well in no acute distress, alert awake and oriented x3. HEAD, EYES, EARS, NOSE, AND THROAT: Extraocular muscles intact. Mucous membranes moist. NECK: Supple. No JVD at 45 degrees. No carotid bruits heard bilaterally. Carotid upstroke is brisk in nature. HEART: Regular rate and rhythm. Positive first and second heart sound with no murmurs, gallops or rubs. LUNGS: Clear to auscultation bilaterally. No wheezes, rales or rhonchi. ABDOMEN: Soft, nontender and nondistended. No organomegaly noted. EXTREMITIES: Show no clubbing, cyanosis or edema. Femoral and distal pulses intact bilaterally. NEUROLOGIC: No focal deficits. SKIN: Warm, dry and intact. OSTEOPATHIC: No kyphoscoliosis, lordosis or paraspinal tender points. LABORATORY FINDINGS Hemoglobin 13.2, hematocrit 40.8, platelets 328. Potassium 4.0, BUN 9, creatinine 0.97, troponin 1.36. Electrocardiogram (March 15, 2017 at 0641) sinus rhythm with sinus arrhythmia, no acute ST-T wave changes. IMPRESSION 1. IV heroin and Dilaudid overdose. 2. NSTEMI 3. Probable cardiac arrest requiring CPR. 4. Tobacco abuse. RECOMMENDATIONS 1. Mr. Garcia presented after an overdose of heroin and Dilaudid. 2. He had an elevated troponin and this is most likely type 2 in nature due to his overdose including probable hypoxemia. As his troponin was quite high for the episode, we will plan on doing a pharmacologic nuclear stress test in the morning to rule out underlying coronary artery disease, although I doubt this is the cause in a young patient such as this. 3. I Spoke to him about trying to quit his IV drug habits. 4. I spoke to him for greater than three minutes about tobacco abuse and tobacco cessation. Thank you for allowing me to see Mitesh Garcia. If there are any questions, please do not hesitate to call. Celestine Parks DO VGP/DJL /12:40 PM /1:11 PM
--- NOTE | 2017-03-15 15:08 | ECHRPT ---
Indication: cardiac arrest CONCLUSIONS The left ventricular systolic function is hyperdynamic with an estimated ejection fraction in the ra nge of 65- 70%. Wall thickness is measured at the upper limits of normal. Trace mitral valve regurgitation. There is mild tricuspid valve regurgitation. BP: / HR: Rhythm: MEASUREMENTS (Male / Female) Normal Values Technical Quality:Good 2D ECHO LV Diastolic Diameter PLAX 5.3 cm 4.2 - 5.9 / 3.9 - 5.3 cm LV Systolic Diameter PLAX 3.6 cm IVS Diastolic Thickness 1.4 cm 0.6 - 1.0 / 0.6 - 0.9 cm LVPW Diastolic Thickness 1.0 cm 0.6 - 1.0 / 0.6 - 0.9 cm LV Relative Wall Thickness 0.4 RV Internal Dim ED PLAX 3.2 cm M-MODE Aortic Root Diameter MM 3.1 cm LA Systolic Diameter MM 4.8 cm LA Ao Ratio MM 1.5 AV Cusp Separation MM 2.3 cm DOPPLER Mitral E Point Velocity 74.0 cm/s Mitral A Point Velocity 57.3 cm/s Mitral E to A Ratio 1.3 LV E' Lateral Velocity 13.2 cm/s Mitral E to LV E' Lateral Ratio 5.6 LV E' Septal Velocity 10.3 cm/s Mitral E to LV E' Septal Ratio 7.2 TR Peak Velocity 278.0 cm/s TR Peak Gradient 30.9 mmHg Right Atrial Pressure 10.0 mmHg Pulmonary Artery Systolic Pressu 40.9 mmHg Right Ventricular Systolic Press 40.9 mmHg FINDINGS LEFT VENTRICLE Normal left ventricular size. The left ventricular systolic function is hyperdynamic with an estimated ejection fraction in the ra nge of 65- 70%. Wall thickness is measured at the upper limits of normal. No regional wall motion abnormalities are present. Left ventricular diastolic function parameters are normal. RIGHT VENTRICLE Normal right ventricular size and systolic function. LEFT ATRIUM The left atrial size is upper limits of normal. RIGHT ATRIUM The right atrial size is normal. ATRIAL SEPTUM Normal atrial septal thickness without atrial level shunting by limited color doppler interrogation. AORTA The aortic root and proximal ascending aorta are normal in size on limited imaging. MITRAL VALVE Structurally normal mitral valve. Trace mitral valve regurgitation. No mitral valve stenosis. AORTIC VALVE Trileaflet aortic valve. No aortic valve regurgitation. No aortic valve stenosis. TRICUSPID VALVE Structurally normal tricuspid valve. There is mild tricuspid valve regurgitation. The estimated pulmonary arterial pressure is 40.9 mmHg. PULMONARY VALVE No pulmonary valve regurgitation or stenosis. VESSELS The inferior vena cava is normal in size. PERICARDIUM No pericardial effusion. Celestine Wilson DO (Electronically Signed) Final Date:15 March 2017 15:07
--- NOTE | 2017-03-15 17:23 | EKG ---
Date Performed: 03/15/2017 Time Performed: 06:41:21 PTAGE: 27 years EKG: Sinus rhythm WITH SINUS ARRHYTHMIA NORMAL ECG PREVIOUS TRACING : 03/15/2017 02.30 DOCTOR: Lori George Interpretating Date/Time 03/15/2017 17:20:42
--- NOTE | 2017-03-15 17:28 | EKG ---
Date Performed: 03/15/2017 Time Performed: 02:30:22 PTAGE: 27 years EKG: Sinus rhythm NORMAL ECG PREVIOUS TRACING : 03/14/2017 19.26 DOCTOR: Lori George Interpretating Date/Time 03/15/2017 17:23:34
--- NOTE | 2017-03-15 17:37 | EKG ---
Date Performed: 03/14/2017 Time Performed: 19:26:43 PTAGE: 27 years EKG: SINUS TACHYCARDIA ABNORMAL RHYTHM ECG NO PREVIOUS TRACING DOCTOR: Lori George Interpretating Date/Time 03/15/2017 17:29:31
[2017-03-15 21:14] LABS: HEMOGLOBIN A1C 5.5 % (4.3-6.0)
[2017-03-16] VITALS: PULSE 62
[2017-03-16 00:26] VITALS: BP 120/57; PULSE 68; RESP 18; TEMP 98; O2SAT 96
[2017-03-16 04:00] VITALS: PULSE 55
[2017-03-16 04:14] VITALS: BP 121/66; PULSE 67; RESP 18; TEMP 97.9; O2SAT 98
[2017-03-16 06:58] LABS: AUTOMATED NEUTROPHIL # 3.4 TH/MM3 (1.8-7.7); BASOPHIL # 0.1 TH/MM3 (0-0.2); BASOPHIL % 0.8 % (0.0-2.0); EOSINOPHIL # 0.8 TH/MM3 (0-0.4); EOSINOPHIL % 12.2 % (0.0-4.0); HEMATOCRIT 38.3 % (39.0-51.0); LYMPH % 24.8 % (9.0-44.0); LYMPHOCYTE # 1.6 TH/MM3 (1.0-4.8); MEAN CELL VOLUME 78.7 FL (80.0-100.0); MEAN CORPUSCULAR HEMOGLOBIN 26.6 PG (27.0-34.0); MEAN CORPUSCULAR HGB CONC 33.8 % (32.0-36.0); MEAN PLATELET VOLUME 7.2 FL (7.0-11.0); MONO % 9.1 % (0.0-8.0); MONOCYTE # 0.6 TH/MM3 (0-0.9); NEUT % 53.1 % (16.0-70.0); PLATELET COUNT 269 TH/MM3 (150-450); RED BLOOD COUNT 4.87 MIL/MM3 (4.50-5.90); RED CELL DISTRIBUTION WIDTH 13.6 % (11.6-17.2); WHITE BLOOD COUNT 6.5 TH/MM3 (4.0-11.0)
[2017-03-16 07:20] LABS: BICARBONATE 28.6 MEQ/L (21.0-32.0); CALCIUM 8.9 MG/DL (8.5-10.1); CREATININE 0.79 MG/DL (0.60-1.30)
[2017-03-16 07:24] LABS: CHOLESTEROL/ HDL RATIO 2.7 RATIO; HDL CHOLESTEROL 45.8 MG/DL (40.0-60.0)
[2017-03-16] MEDS: SODIUM CHLORIDE 0.9% FLUSH 10 ML FLUSH IV FLUSH SCH (08:10)
[2017-03-16 08:14] VITALS: BP 139/80; PULSE 67; RESP 18; TEMP 98; O2SAT 99
[2017-03-16] MEDS ORDERED: ASPIRIN EC 81 MG TABEC PO SCH (09:00)
[2017-03-16] MEDS ORDERED: REGADENOSON INJ 0.4 MG/5 ML SYR ONE (09:30)
--- NOTE | 2017-03-16 10:51 | RADRPT ---
EXAM DATE/TIME: 03/16/2017 09:20 [facility] COMPARISON: No previous studies available for comparison. INDICATIONS : Cardiac arrest. Overdose and elevated troponins. Myocardial infarction. DOSE: 30.2 mCi Tc99m Myoview at stress. 10.3 mCi Tc99m Myoview at rest. 0.4 mg Lexiscan STRESS SYMPTOMS: Shortness of breath, chest pressure. EJECTION FRACTION: 51% MEDICAL HISTORY : IV drug abuse. Smoker. SURGICAL HISTORY : None. ENCOUNTER: Initial ACUITY: 1 day PAIN SCALE: 0/10 LOCATION: chest TECHNIQUE: The patient underwent pharmacologic stress with infusion of prescribed dose. Continuous ECG tracing was monitored during stress. Gated SPECT imaging was performed after stress and conventional SPECT i maging was performed at rest. The examination was performed on a SPECT/CT scanner, both attenuation and non-corrected datasets were reviewed. FINDINGS: DISTRIBUTION: The maximum perfused segment at stress is in the inferolateral wall. PERFUSION STUDY: There is small area of reversibility along the anterior wall of mild severity. GATED STUDY: There is intact wall motion and thickening without hypokinetic or dyskinetic segments. CONCLUSION: Small area of reversibility along the anterior wall likely ischemia. RISK CATEGORY: Intermediate (1-3% Annual Mortality Rate) Cristian Trevizo MD on March 16, 2017 at 10:46 Board Certified Radiologist. This report was verified electronically.
[2017-03-16] MEDS ORDERED: NITROGLYCERIN 0.4 MG SL 25 TABS/BTL SL PRN (11:00)
[2017-03-16] MEDS ORDERED: METOPROLOL TARTRATE 25 MG TAB PO SCH (11:00)
[2017-03-16] MEDS ORDERED: VERAPAMIL HCL 5 MG/2 ML VIAL ONE (12:15)
[2017-03-16] MEDS ORDERED: HEPARIN SODIUM - IV 10,000 UNITS/10 ML VIAL ONE (12:15)
[2017-03-16] MEDS ORDERED: HEPARIN-NS/PF INJ 1,000 ML ONE (12:15)
[2017-03-16] MEDS ORDERED: MIDAZOLAM HCL 2 MG/2 ML VIAL ONE (12:15)
[2017-03-16] MEDS ORDERED: NITROGLYCERIN INJ 5 ML ONE (12:15)
--- NOTE | 2017-03-16 13:04 | CATHPROC ---
[employer] HIS Report Study Information Study Number Admission Scheduled Start Study Start [id number] Mar 14 2017 9:33PM 03/16/2017 Mar 16 2017 11:53AM [place] Service Cardiac Catheterization Admit Source Facility Department Emergency department [facility] - Recyclable Materials Sorter Physician and Clinical Staff Initial Celestine Johnson Footwear Sales Coordinator Sarah Sorenson BSN Recorder Suzanne Monahan,RT(R) Scrub Nely Fleming,RT(R) (BS) Scrub Qian House ,RT(R) Procedures Performed Procedure Location (Site) Vessel Name Coronary Angiograms LCA Left Coronary Coronary Angiograms RCA Right Coronary L Heart Cath Equipment Time Polymerization Oven Tender Description Size Mfg Part Number Used/Scraped TRANSDUCER, TRUWAVE [id number] 11:55 HOLDER WILKINSON * Used W/STOCKCOCK *[id number] *[id number] 11:55 [employer]opin PACK, CCL CUSTOM * Used *[id number] 11:55 [employer] SUPPORT, ARTERIAL ADULT 33445 *[id number] Used [id number] 12:34 MEDTRONIC JR 4.0 DXTERITY CATHETER FR 5 Used *[id number] BAND, RADIAL COMPRESSION TR [id number] 12:50 [employer] MEDICAL 29CM Used LARGE 29 *[id number] 11:55 [employer] MEDICAL WIRE, EXCHANGE 260CM 3MMJ 260CM Used *[id number] 11:55 NAMIC MANIFOLD, 4 PORT * Used *[id number] 11:55 NYCOMED OMNIPAQUE, 350 MG, 150ML 150ML [id number] Used [id number] 11:55 RODRIG[employer]Z MEDICAL BLANKET,WARM AIR CCL * Used *[id number] SHEATH, FR6 TRANSRADIAL [id number] 11:55 [employer] FR 6 Used SLENDER 10CM *[id number] Equipment Model, Serial, Lot Number and Expiration Data Description Model Number Serial Number Lot Number Expiration Date JR 4.0 DXTERITY CATHETER [id number] 11-18-2019 History: Allergies Allergy Reaction No Known Allergies History: Risk Factors Family History of Hypertension Dyslipidemia Previous MN Previous Heart Failure Premature CAD No No No No No Prior Valve Prior PCI Prior CABG Surgery No No No Cerebrovascular Peripheral Artery Chronic Lung On Dialysis Diabetes Disease Disease Disease No No No No No History: Stress Tests Stress or Imaging Studies Performed Yes Standard Exercise Stress Test No Stress Echo No Stress Test SPECT Stress Test SPECT Result Stress Test SPECT Ischemia Risk/Extent Yes Positive Intermediate Stress Test CMR No Cardiac CTA Coronary Calcium Score No No History: Other Current Smoker Packs a Day Years Used Pack Years Yes 1 14 14 Labs Hgb (g/dl) Hct (%) WBC (l/cumm) Platelets (thousands) 11.60-17.00 35.00-51.00 4.00-11.00 150.00-450.00 13.0 38.3 6.5 269 Glucose (mg/dl) BUN (mg/dl) Creatinine (mg/dl) BUN:Creatinine (1:x) 74.00-106.00 7.00-18.00 0.50-1.30 10.00-20.00 79 7 0.7 10 K (meq/l) 3.50-5.10 4 INR (PTT:PT) 0.90-1.10 1 Troponin I (ng/ml) CPK-MB (ng/ML) 0.02-0.05 0.50-3.60 0.81 Not Drawn Medication Medication Total Dose (Bolus/Oral) Medication Total Dosage/Unit 1% XYLOCAINE 20 mL RADIAL COCKTAIL 5 mL (Bolus) VERSED 0.5 mg Medications (Bolus/Oral) Medication Time Given Dosage/Unit Administered By Reason VERSED 03/16/2017 12:33:23 PM 0.5 mg Sarah Sorenson 0.5 mg VERSED given in lab by Sarah Sorenson BSN in Left Antecubital via Peripheral IV. Ordered by Celestine Wilson. 1% XYLOCAINE 03/16/2017 12:34:16 PM 20 mL Celestine Wlison 20 mL 1% XYLOCAINE given in lab by Celestine Wilson in Right Radial via Subcutaneous. RADIAL COCKTAIL 03/16/2017 12:35:12 PM 5 mL (Bolus) Celestine Wilson 5 mL (Bolus) RADIAL COCKTAIL given in lab by Celestine Wilson in Right Radial via Radial. Using [S olution Name]. Reason: Ntg 200mcg Verapamil 2.5mg Heparin 4100U. Medication (Drip) Medication Time Given Dosage/Unit Concentration/Unit Diluent (ml) Solution IV Solutions 03/16/2017 12:07:24 PM 50 mL (IV) NaCl .9 IV Solutions given in lab by Sarah Sorenson BSN in Left Antecubital via Peripheral IV. Pump/Dri p Flow using NaCl .9. Initial Case Assessment Cardiovascular HR Rhythm NIBP Chest Pain 54 riley 162/86 0 Edema Present Skin color Skin None Normal Warm Dry Circulatory - Right Pulses Dorsalis Pedis Femoral Radial 2 2 2 Scale (0,1,2,3,4,d) Scale (0,1,2,3,4,d) Neurological State Oriented to time-place- Alert Moves all extremities person Respiration - General Respiration Rate SpO2 (%) (B/min) 13 100 Chronological Log Time Study Chronological Log 12:07:06 Patient arrived via Bed. 12:07:07 Patient Name, D.O.B, / Armband Verified By R.N. 12:07:08 Consent signed by the physician and the patient and verified by the Recyclable Materials S[employer] staff. 12:07:09 Pre-op and post- op instructions given; patient acknowledges understanding of instructions. 12:07:09 Verbal Stimulation=2 Physical Stimulation=2 Airway=2 Respiration=2 TOTAL=8. (0=absent, 1=li mited, 2=present) 12:07:14 Allens test performed on the right radial and ulnar artery. 12:07:15 Immediate Presedation assesment performed by physician. 12:07:19 Patient has been NPO for Less than 6Hrs. 12:07:20 Skin Breakdown- none per pt 12:07:20 Patient Warmer Placed on the Table. 12:07:21 Beth Prominences Protected 12:07:23 A # 20 IV was noted in the Antecubital (left). Grade = 0 IV Solutions given in lab by Sarah Sorenson BSN in Left Antecubital via Peripheral IV. Pu mp/Drip Flow using NaCl 12:07:24 .9. 12:07:24 History and physical on the chart or being dictated. Assessment: Initial Case, HR=54 BPM, Rhythm=riley, UQBJ=151/86 mmhg, Chest Pain=0, Edema=None, Color=Normal, Skin = Warm, Dry 12:07:25 Right Pulses: Sean Ped=2, Femoral=2, Radial=2 Neurological: State=Alert, Ox3, ZHANG Respiration: Resp=13 B/min, NrU5=999 % Vitals capture started with the following parameters, Patient=Adult, Interval=5 min, Initial Pr crganj=431 mmHg, 12:11:24 Deflation Rate=5 mmHg, Cuff placed on Left Arm 12:12:53 HR=63 bpm, OOVH=869/86 mmhg, AqT6=448.0 %, Resp=17 B/min 12:16:23 Reference ECG taken 12:17:14 HR=81 bpm, RAWQ=151/99 mmhg, QkG0=660.0 %, Resp=17 B/min Vitals capture started with the following parameters, Patient=Adult, Interval=5 min, Initial Pr slypjm=741 mmHg, 12:23:43 Deflation Rate=5 mmHg, Cuff placed on Left Arm 12:24:03 Right Radial and right groin prepped with 2% chlorhexidine, and draped after a 3 min. waiti ng time. 12:24:34 HR=66 bpm, HQVY=674/97 mmhg, MzL5=131.0 %, Resp=10 B/min 12:29:33 HR=63 bpm, ZAUP=923/100 mmhg, WuJ7=761.0 %, Resp=20 B/min 12:29:48 MD arrived. 12:30:49 Pressure channel 1 zeroed. Time Out. Correct patient, correct procedure, correct physician, power injector loaded, or not loaded with contrast with 12:32:37 surgical team present. Time Out Concurred by MD and individual staff in procedure. 0.5 mg VERSED given in lab by Sarah Sorenson BSN in Left Antecubital via Peripheral IV. O rdered by Steve, 12:33:23 Celestine Martinez. 12:33:40 Case Start 12:34:16 20 mL 1% XYLOCAINE given in lab by Celestine Wilson in Right Radial via Subcutaneous. 12:34:27 Access site was Right Radial Artery. 12:34:34 HR=58 bpm, WJXP=492/89 mmhg, AtI9=912.0 %, Resp=19 B/min A SHEATH, FR6 TRANSRADIAL SLENDER 10CM FR 6 was advanced into the Radial (right) using the Perc utaneous 12:34:37 technique. 5 mL (Bolus) RADIAL COCKTAIL given in lab by Celestine Wilson in Right Radial via Radial. Us ing [Solution Name]. 12:35:12 Reason: Ntg 200mcg Verapamil 2.5mg Heparin 4100U. A JR 4.0 DXTERITY CATHETER FR 5 was advanced over a wire. OMNIPAQUE, 350 MG, 150ML 150ML was us ed for 12:37:00 injections. Recorded Pressure: LV, HR=67, Condition=Condition 1 12:38:37 (Left Ventricle) LV 122/3/9 Recorded Pressure: LV, Ao, HR=65, Condition=Condition 1 12:38:45 (Left Ventricle) LV 128/2/10, (Aorta) Ao 121/78/98 Recorded Pressure: Ao, HR=65, Condition=Condition 1 12:39:03 (Aorta) Ao 124/82/102 12:39:25 The RCA was injected and visualized at various angles. OMNIPAQUE, 350 MG, 150ML 150ML used . 12:39:31 HR=67 bpm, DDRR=338/79 mmhg, ZfG8=281.0 %, Resp=19 B/min After removing the current catheter a JL 3.5 INFINITI CATHETER FR 5 was advanced over a WIRE, E XCHANGE 260CM 12:42:08 3MMJ 260CM. 12:43:05 The LCA was injected and visualized at various angles. OMNIPAQUE, 350 MG, 150ML 150ML used . 12:45:11 HR=63 bpm, ZNGX=476/87 mmhg, DkP4=901.0 %, Resp=20 B/min 12:49:13 Catheter was removed 12:50:20 HR=63 bpm, XBAG=133/93 mmhg, SpO2=98.0 %, Resp=20 B/min Radial Compression Device Used. 9 mLs of air placed in BAND, RADIAL COMPRESSION TR LARGE 29 29C M. Affected 12:51:25 hand ~O2 SATURATION~ % O2 saturation. 12:52:03 Case End 12:53:00 No case complications noted. 12:53:01 Cine recording checked. 12:53:04 Bedside Report will be given. 12:53:08 Contrast Scanned 12:53:09 A Left Heart Cath was performed. 12:54:38 HR=61 bpm, IKGE=561/80 mmhg, XcG2=811.0 %, Resp=11 B/min 12:59:51 Vitals capture stopped. 13:00:09 Patient moved to stretcher End Study - Contrast Media Used In Study Contrast Total Opened (mL) Total Used (mL) Total Wasted (mL) Omnipaque 40 40 0 End Study - Maximum Contrast Load Max Contrast Load (mL) 727.3 End Study - Radiation Exposure Fluoro Time (minutes) 3.8 End Study - Patient Disposition Complications Transferred To Interventional Outcome No Telemetry Bed No attempt made
[2017-03-16] MEDS ORDERED: MISC INFORMATION XX ONE (13:15)
--- NOTE | 2017-03-16 13:53 | PD.CARD.PN ---
Subjective Subjective Remarks No events overnight Stress test showing ischemia Objective Medications Current Medications Medications (Trade) Dose Ordered Sig/Mati Route Start Time Stop Time Status Last Admin (Narcan Inj) 0.4 mg UNSCH X1 PRN IV PUSH 03/14/17 19:00 03/14/17 19:06 (NS Flush) 2 ml UNSCH PRN IV FLUSH 03/14/17 22:00 (NS Flush) 2 ml BID IV FLUSH 03/15/17 09:00 03/16/17 08:10 (Narcan Inj) 0.4 mg UNSCH PRN IV PUSH 03/14/17 22:00 (Ecotrin Ec) 81 mg DAILY PO 03/16/17 09:00 03/16/17 08:09 (Lopressor) 25 mg Q12HR PO 03/16/17 11:00 (Nitrostat Sl) 0.4 mg Q5M PRN SL 03/16/17 11:00 Vital Signs / I&O Vital Signs Date Time Temp Pulse Resp B/P (MAP) Pulse Ox O2 Delivery O2 Flow Rate FiO2 03/16/17 13:19 99 Room Air 03/16/17 08:14 98.0 67 18 139/80 (99) 99 03/16/17 04:14 97.9 67 18 121/66 (84) 98 03/16/17 04:00 55 03/16/17 00:26 98.0 68 18 120/57 (78) 96 03/16/17 00:00 62 03/15/17 20:42 98.0 66 18 119/68 (85) 99 03/15/17 20:09 83 03/15/17 16:01 98.4 72 18 138/82 (100) 99 I/O 03/15/17 03/15/17 03/15/17 03/16/17 03/16/17 03/16/17 07:00 15:00 23:00 07:00 15:00 23:00 # Voids 1 1 3 Physical Exam GENERAL: NAD, AAOx3 SKIN: Warm and dry. HEAD: Atraumatic. Normocephalic. EYES: Pupils equal and round. No scleral icterus. No injection or drainage. ENT: No nasal bleeding or discharge. Mucous membranes pink and moist. NECK: Trachea midline. No JVD. CARDIOVASCULAR: Regular rate and rhythm. RESPIRATORY: No accessory muscle use. Clear to auscultation. Breath sounds equal bilaterally. GASTROINTESTINAL: Abdomen soft, non-tender, nondistended. Hepatic and splenic margins not palpable. MUSCULOSKELETAL: Extremities without clubbing, cyanosis, or edema. No obvious deformities. NEUROLOGICAL: Awake and alert. No obvious cranial nerve deficits. Motor grossly within normal limits. Five out of 5 muscle strength in the arms and legs. Normal speech. PSYCHIATRIC: Appropriate mood and affect; insight and judgment normal. Laboratory Laboratory Tests Test 03/16/17 05:15 White Blood Count 6.5 TH/MM3 Red Blood Count 4.87 MIL/MM3 Hemoglobin 13.0 GM/DL Hematocrit 38.3 % Mean Corpuscular Volume 78.7 FL Mean Corpuscular Hemoglobin 26.6 PG Mean Corpuscular Hemoglobin Concent 33.8 % Red Cell Distribution Width 13.6 % Platelet Count 269 TH/MM3 Mean Platelet Volume 7.2 FL Neutrophils (%) (Auto) 53.1 % Lymphocytes (%) (Auto) 24.8 % Monocytes (%) (Auto) 9.1 % Eosinophils (%) (Auto) 12.2 % Basophils (%) (Auto) 0.8 % Neutrophils # (Auto) 3.4 TH/MM3 Lymphocytes # (Auto) 1.6 TH/MM3 Monocytes # (Auto) 0.6 TH/MM3 Eosinophils # (Auto) 0.8 TH/MM3 Basophils # (Auto) 0.1 TH/MM3 CBC Comment DIFF FINAL Differential Comment Blood Urea Nitrogen 7 MG/DL Creatinine 0.79 MG/DL Random Glucose 79 MG/DL Calcium Level 8.9 MG/DL Sodium Level 142 MEQ/L Potassium Level 3.7 MEQ/L Chloride Level 106 MEQ/L Carbon Dioxide Level 28.6 MEQ/L Anion Gap 7 MEQ/L Estimat Glomerular Filtration Rate 118 ML/MIN Triglycerides Level 54 MG/DL Cholesterol Level 124 MG/DL LDL Cholesterol 67 MG/DL HDL Cholesterol 45.8 MG/DL Cholesterol/HDL Ratio 2.70 RATIO Imaging Last 24 hours Impressions Myocardial Perfusion Scan Nuc Med 03/16/17 0600 Signed Impressions: Service Date/Time: Thursday, March 16, 2017 09:20 - CONCLUSION: Small area of reversibility along the anterior wall likely ischemia. RISK CATEGORY: Intermediate (1-3%% Annual Mortality Rate) Cristian Trevizo MD Assessment and Plan Problem List: (1) Drug abuse ICD Codes: F19.10 - Other psychoactive substance abuse, uncomplicated (2) Drug abuse, IV ICD Codes: F19.10 - Other psychoactive substance abuse, uncomplicated (3) Tobacco abuse ICD Codes: Z72.0 - Tobacco use (4) Elevated troponin ICD Codes: R74.8 - Abnormal levels of other serum enzymes Status: Acute (5) Alcoholic hepatitis ICD Codes: K70.10 - Alcoholic hepatitis without ascites Status: Acute Assessment and Plan 1) Elevated trop/Abnl stress test Cardiac catheterization showing no significant disease Cardiovascularly stable for discharge today 2) IVDA Cessation 3) Tobacco cessation Celestine Wilson DO Mar 16, 2017 13:53
--- NOTE | 2017-03-16 13:54 | HHI.PR ---
Subjective Remarks Follow-up elevated troponin. Abnormal stress test agrees with cardiac catheterization. Denies chest pain. Cardiac catheterization with no CAD per cardiology Objective Vitals Vital Signs Date Time Temp Pulse Resp B/P (MAP) Pulse Ox O2 Delivery O2 Flow Rate FiO2 03/16/17 13:19 99 Room Air 03/16/17 08:14 98.0 67 18 139/80 (99) 99 03/16/17 04:14 97.9 67 18 121/66 (84) 98 03/16/17 04:00 55 03/16/17 00:26 98.0 68 18 120/57 (78) 96 03/16/17 00:00 62 03/15/17 20:42 98.0 66 18 119/68 (85) 99 03/15/17 20:09 83 03/15/17 16:01 98.4 72 18 138/82 (100) 99 I/O 03/15/17 03/15/17 03/15/17 03/16/17 03/16/17 03/16/17 07:00 15:00 23:00 07:00 15:00 23:00 # Voids 1 1 3 Result Diagram: 03/16/17 0515 03/16/17 0515 Imaging Last Impressions Myocardial Perfusion Scan Nuc Med 03/16/17 0600 Signed Impressions: Service Date/Time: Thursday, March 16, 2017 09:20 - CONCLUSION: Small area of reversibility along the anterior wall likely ischemia. RISK CATEGORY: Intermediate (1-3%% Annual Mortality Rate) Cristian Tervizo MD CT Angiography 03/14/172014 Signed Impressions: Service Date/Time: Tuesday, March 14, 2017 20:23 - CONCLUSION: 1. Suboptimal exam but no evidence for pulmonary embolus. 2. Groundglass opacity in the upper lobes, nonspecific. Differential diagnosis includes some form of hypersensitivity type reaction or inflammatory change. Gen Chaney MD Cervical Spine CT 03/14/171916 Signed Impressions: Service Date/Time: Tuesday, March 14, 2017 19:43 - CONCLUSION: Normal examination for a patient of this age. Gen Chaney MD Head CT 03/14/171908 Signed Impressions: Service Date/Time: Tuesday, March 14, 2017 19:43 - CONCLUSION: 1. No acute intracranial abnormalities. Gen Chaney MD Chest X-Ray 03/14/17 9490 Signed Impressions: Service Date/Time: Tuesday, March 14, 2017 19:20 - CONCLUSION: 1. No acute findings. Gen Chaney MD Objective Remarks GENERAL: Well-developed, well-nourished in no distress SKIN: No rashes, ecchymoses or lesions. Cool and dry. CARDIOVASCULAR: Regular rate and rhythm without murmurs, gallops, or rubs. RESPIRATORY: Clear to auscultation. Breath sounds equal bilaterally. No wheezes , rales, or rhonchi. GASTROINTESTINAL: Abdomen soft, non-tender, nondistended. No guarding. MUSCULOSKELETAL: Extremities without clubbing, cyanosis, or edema. No joint tenderness, effusion, or edema noted. No calf tenderness. NEUROLOGICAL: Awake and alert. Cranial nerves II through XII intact. Motor and sensory grossly within normal limits. Normal speech. Procedures Cardiac catheterization A/P Problem List: (1) Syncope and collapse ICD Code: R55 - Syncope and collapse Status: Acute Assessment and Plan 1. Heroin and Opiate overdose. Resolved. Patient has been counseled. Echocardiogram unremarkable 2. Elevated troponin. Denies chest pain. Abnormal stress test with negative cardiac catheterization. LDL 67 3. Hyperglycemia. A1c 5.5 4. Leukocytosis likely reactive. This is resolved. No fever. CTA showed groundglass opacity in the upper lobes. Denies respiratory symptoms. Monitor FEN Regular diet Electrolytes: s/p PO potassium, follow up BMP Discharge Planning Discharge patient to home Condition on discharge: Improved Regular Diet as tolerated Ad Michelle activity no driving Rx written: None Follow-up with primary care physician and detox center James Ignacio MD Mar 16, 2017 13:54
--- NOTE | 2017-03-16 14:27 | HHI.DCPOC ---
Discharge Care Plan Diagnosis: (1) Accidental overdose of heroin (2) Syncope and collapse Goals to Promote Your Health * To prevent worsening of your condition and complications * To maintain your health at the optimal level Directions to Meet Your Goals Take your medications as prescribed Follow your dietary instruction Follow activity as directed Keep your appointments as scheduled Take your immunizations and boosters as scheduled If your symptoms worsen call your PCP, if no PCP go to Urgent Care Center or Emergency Room Smoking is Dangerous to Your Health. Avoid second hand smoke Call the 24-hour hour crisis hotline for domestic abuse at Tammy Calles PA-C Mar 16, 2017 2:27 pm
--- NOTE | 2017-03-17 06:35 | MA ---
cc: CELESTINE PARKS DO DATE OF PROCEDURE March 16, 2017 PROCEDURE Left heart catheterization, coronary angiogram, moderate sedation 20 minutes. PREPROCEDURE DIAGNOSIS N-STEMI, abnormal stress test. POSTPROCEDURE DIAGNOSIS No significant coronary artery disease. N-STEMI Type 2. MEDICATIONS 1. Versed 0.5 mg. 2. Heparin 4100 units. 3. Verapamil 2.5 mg. 4. Nitro 200 mcg. CONTRAST USED 40 cc. FLUOROSCOPY 3.8 minutes. MODERATE SEDATION 20 minutes. ESTIMATED BLOOD LOSS 10 cc. PROCEDURAL SUMMARY Mitesh Garcia is a pleasant 27-year-old male who presented to [facility] after overdose using heroin and Dilaudid in cardiac arrest. He was found to have an elevated troponin and underwent stress testing. During this he was found to have anterior ischemia and it was felt that, due to the higher than expected troponin as well as the abnormal stress test, he should undergo cardiac catheterization. Risks, benefits and alternatives were explained to him he consented as such. He was brought to lab and prepped in the usual sterile fashion. The right radial artery was accessed using modified Seldinger technique and placement of a 5/6 Lao sheath. This was easily aspirated and flushed. A JR-4 was advanced over a J-wire to the ascending aorta and across the aortic valve for measurement of left ventricular pressure. This was pulled back across the aortic valve showing no significant gradient of aortic stenosis. A JR-4 was then used for selective angiography of the right coronary artery system. This was exchanged out for a JL-3.5 which was used for selective angiography of the left coronary artery system. JL-3.5 was removed over a J-wire. A radial band was placed over the arteriotomy site for hemostasis. 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 FINDINGS LEFT MAIN: Normal-sized vessel with adequate reflux. No significant disease. It bifurcates into an LAD and circumflex. LAD: Normal to large-sized vessel with no significant disease noted. It gives off two major diagonals with no significant disease. LEFT CIRCUMFLEX: Normal-sized vessel with mild tortuosity. Mild luminal irregularities noted. It gives off two major obtuse marginals with no significant disease. RCA: Normal-sized vessel. High anterior takeoff. Mild luminal irregularities distally but no significant disease. LVEDP: 10. IMPRESSIONS 1. N-STEMI Type 2 2. Overdose on IV drugs including Dilaudid and heroin. 3. Tobacco abuse. RECOMMENDATIONS 1. Mr. Garcia appears to have no significant disease to cause his N-STEMI and this is most likely type 2 due to his overdose as well as cardiac arrest. 2. He will be watched for the next 3 hours and then discharged home. 3. I have instructed him not to lift more than 10 pounds for 3 days using his right wrist. 4. I spoke to him about tobacco cessation for greater than 3 minutes. 5. I also talked to him about cessation of IV drugs. Thank you for allowing me to see Mitesh Garcia. If there are any questions, please do not hesitate to call. Celestine Parks DO VGP/SSB /12:03 AM /6:12 AM
== END 2017-03-16 15:46 | disposition home or self-care (01) ==
LOC: NEPC 18:43 → NEDA 21:33 → NEPGCP 22:42 → HCIS 03-16 12:12
PROVIDERS: ADMIT Internal Medicine; ATTEND Internal Medicine
DX: T40.1X1A Poisoning by heroin, accidental (unintentional), initial encounter (principal); T40.2X1A Poisoning by other opioids, accidental (unintentional), initial encounter; R74.8 Abnormal levels of other serum enzymes; R00.0 Tachycardia, unspecified; R94.39 Abnormal result of other cardiovascular function study; I46.9 Cardiac arrest, cause unspecified; I21.4 Non-ST elevation (NSTEMI) myocardial infarction; I10 Essential (primary) hypertension; I49.9 Cardiac arrhythmia, unspecified; M54.2 Cervicalgia; R55 Syncope and collapse; R73.9 Hyperglycemia, unspecified; D72.829 Elevated white blood cell count, unspecified; K70.10 Alcoholic hepatitis without ascites; F17.200 Nicotine dependence, unspecified, uncomplicated
CPT/HCPCS: 70450; 71045; 71275; 72125; 78452; 80048; 80053; 80061; 80307; 82550; 83036; 84443; 84484; 85025; 85610; 85730; 93005; 93017; 93306; 93458; 96361; 96374; 96375; 99152; 99153; 99285; A9502; C1769; C1893; G0378; J1644; J2250; J2310; J2405; J2785; J3010; J7030; Q9967

== ENCOUNTER 2017-08-25 05:44 | Inpatient (IN) ==
[2017-08-25] MEDS ORDERED: Ketorolac Inj 30 MG/ML (IVP) Vial IV.PUSH ONE (07:55)
[2017-08-25] MEDS ORDERED: Clindamycin 600 mg/NS Premix 600 MG/50 ML PIGGYBACK IV.SIG ONE (07:55)
--- NOTE | 2017-08-25 07:59 | ED ---
HPI General Stated complaint: Skin Time Seen by Provider: 08/25/17 07:55 Source: patient Mode of arrival: ambulatory Limitations: no limitations History of Present Illness HPI narrative: patient seen yesterday and consulted hand surgeon dr joseph as well as admitted to [facility], however patient left [facility] yesterday for personal reasons returns today ready to be admitted and treated, apologizes that he left yesterday. complaint: abscess/boil Onset (ago): day(s) Location: R hand Severity: moderate Severity scale (1-10): 6 Quality: constant Pain Consistency: constant Relieving factors: cold therapy Exacerbating factors: palpation Context: other (patient vehemently denies ivdu, ) Treatments prior to arrival: none (of note seen yesterday and treated with iv abx) Related Data Home Medications Medication Instructions Recorded Confirmed No Known Home Medications 08/24/17 08/25/17 Previous Rx's Medication Instructions Recorded oxycodone-acetaminophen 1 tab PO Q6HR PRN #30 tab 08/30/17 Allergies Allergy/AdvReac Type Severity Reaction Status Date / Time No Known Allergies Allergy Verified 08/25/17 18:50 Review of Systems Except as stated in HPI: all other systems reviewed are negative COUNT INCLUDES [facility] Medical History Medical History Patient denies medical problems (Acute) Surgical History Surgical History No history of previous surgery (Acute) Family History Family History Other Family history of diabetes mellitus Family history of hypertension Social History Social History Substance History: Past History Second Hand Smoke Exposure: No Smoking Status: Current every day smoker Tobacco Type: Cigarettes Packs Per Day: 1 Cigarettes Per Day: 20.0 How Often Do You Have a Drink Containing Alcohol: Monthly or less Recent Travel in [facility] within the Last 8 Weeks: No Recent Out of Country Travel within the Last 8 Weeks: No Substance Abuse Detail Marijuana: Substance Use Status: Active Route Used Substance Abuse: Inhalation Substance Frequency: daily Last Used: yesterday Reason for Use: Calm Down Immunization History Tetanus Immunization: <5 Years Hx Influenza Vaccine This Season: No Exam Const General: cooperative and healthy appearing Nutritional Appearance: average body habitus Orientation: alert, awake and oriented x3 HENMT Head: normal to inspection Ears: hearing grossly normal bilaterally Nose: no nasal discharge and no epistaxis Face and sinus: normal facial exam Mouth: moist mucous membranes Eyes General: appearance normal, both eyes and all related structures Sclera: normal sclerae Pupils: PERRL Neck Neck: normal visual inspection, full ROM, no lymphadenopathy and supple Thyroid: thyroid normal Lymphatic: no lymphadenopathy noted Chest Chest: normal inspection of the chest Resp Effort & Inspection: normal respiratory effort and able to speak in complete sentences Auscultation: clear to auscultation bilaterally Percussion: percussion normal Cardio Jugular venous pressure: no JVD Palpation: normal PMI Rate: regular rate Rhythm: regular rhythm Heart Sounds: S1 normal and S2 normal GI Inspection: normal to inspection and non-distended Palpation: soft, no hepatosplenomegaly and nontender Skin General: dry skin (warm) Other: right hand edematous, with half dollar size induration on first web space , also a quarter size induration erythema at flexor mid forearm region Neuro General: alert and awake Cranial Nerves: other Speech: speech normal Motor: no movement abnormalities noted Extrem General: normal to inspection, no clubbing and no cyanosis Psych Mood: congruent mood Affect: normal affect Judgment: judgment good Course Initial Documented Vital Signs Temperature 98.4 F 08/25/17 05:53 Pulse Rate 80 08/25/17 05:53 Respiratory Rate 16 08/25/17 05:53 Blood Pressure 142/57 H 08/25/17 05:53 Pulse Oximetry 100 08/25/17 05:53 Last Documented Vital Signs Temperature 97.7 F 08/30/17 12:00 Pulse Rate 86 08/30/17 12:00 Respiratory Rate 20 08/30/17 12:00 Blood Pressure 124/67 08/30/17 12:00 Pulse Oximetry 94 L 08/30/17 12:00 Medical Decision Making Differential Diagnosis Differential Diagnosis: abscess v cellulitis v lymphangitis Lab Data Lab results reviewed: Yes I reviewed the patient's lab results. Result diagrams: 08/26/17 13:33 08/30/17 07:00 Lab Results 08/25/17 08/25/17 08/26/17 Range/Units 07:55 07:55 13:33 WBC 11.8 H (4.0-11.0) th/mm3 RBC 5.28 (4.50-5.90) mil/mm3 Hgb 13.2 (13.0-17.0) gm/dL Hct 41.1 (39.0-51.0) % MCV 77.9 L (80.0-100.0) fL MCH 25.0 L (27.0-34.0) pg MCHC 32.1 (32.0-36.0) % RDW 13.4 (11.6-17.2) % Plt Count 386 (150-450) th/mm3 MPV 7.1 (7.0-11.0) fL Neut % (Auto) 74.9 H (16.0-70.0) % Lymph % (Auto) 14.7 (9.0-44.0) % [place] % (Auto) 6.7 (0.0-8.0) % Eos % (Auto) 3.1 (0.0-4.0) % Baso % (Auto) 0.6 (0.0-2.0) % Neut # (Auto) 8.9 H (1.8-7.7) th/mm3 Lymph # (Auto) 1.7 (1.0-4.8) th/mm3 [place] # (Auto) 0.8 (0.0-0.9) th/mm3 Eos # (Auto) 0.4 (0.0-0.4) th/mm3 Baso # (Auto) 0.1 (0.0-0.2) th/mm3 WBC Differential . Differential Comment Auto diff final PT (9.8-11.6) sec INR Ratio Sodium 142 (136-145) meq/L Potassium 4.0 (3.5-5.1) meq/L Chloride 107 (98-107) meq/L Carbon Dioxide 25.8 (21.0-32.0) meq/L Anion Gap 9 (5-15) meq/L BUN 10 (7-18) mg/dL Creatinine 0.99 (0.60-1.30) mg/dL Estimated GFR Greater than 89 (>89) mL/min Random Glucose 102 (74-106) mg/dL Hemoglobin A1c 5.3 (4.3-6.0) % Calcium 9.5 (8.5-10.1) mg/dL Phosphorus (2.5-4.9) mg/dL Magnesium (1.5-2.5) mg/dL Total Bilirubin (0.2-1.0) mg/dL AST (15-37) U/L ALT (12-78) U/L Alkaline Phosphatase (45-117) U/L Total Protein (6.4-8.2) g/dL Albumin (3.4-5.0) g/dL TSH (0.358-3.740) uIU/mL Free T4 (0.76-1.46) ng/dL Vancomycin Trough (5.0-10.0) mcg/mL 08/26/17 08/26/17 08/26/17 Range/Units 13:33 13:33 13:33 WBC 6.0 (4.0-11.0) th/mm3 RBC 4.97 (4.50-5.90) mil/mm3 Hgb 12.6 L (13.0-17.0) gm/dL Hct 38.6 L (39.0-51.0) % MCV 77.7 L (80.0-100.0) fL MCH 25.5 L (27.0-34.0) pg MCHC 32.7 (32.0-36.0) % RDW 13.3 (11.6-17.2) % Plt Count 395 (150-450) th/mm3 MPV 7.2 (7.0-11.0) fL Neut % (Auto) 55.4 (16.0-70.0) % Lymph % (Auto) 28.9 (9.0-44.0) % [place] % (Auto) 9.8 H (0.0-8.0) % Eos % (Auto) 5.2 H (0.0-4.0) % Baso % (Auto) 0.7 (0.0-2.0) % Neut # (Auto) 3.3 (1.8-7.7) th/mm3 Lymph # (Auto) 1.7 (1.0-4.8) th/mm3 [place] # (Auto) 0.6 (0.0-0.9) th/mm3 Eos # (Auto) 0.3 (0.0-0.4) th/mm3 Baso # (Auto) 0.0 (0.0-0.2) th/mm3 WBC Differential . Differential Comment Auto diff final PT 11.0 (9.8-11.6) sec INR 1.1 Ratio Sodium 144 (136-145) meq/L Potassium 4.0 (3.5-5.1) meq/L Chloride 109 H (98-107) meq/L Carbon Dioxide 27.6 (21.0-32.0) meq/L Anion Gap 7 (5-15) meq/L BUN 7 (7-18) mg/dL Creatinine 0.94 (0.60-1.30) mg/dL Estimated GFR Greater than 89 (>89) mL/min Random Glucose 92 (74-106) mg/dL Hemoglobin A1c (4.3-6.0) % Calcium 9.1 (8.5-10.1) mg/dL Phosphorus 3.2 (2.5-4.9) mg/dL Magnesium 2.1 (1.5-2.5) mg/dL Total Bilirubin 0.3 (0.2-1.0) mg/dL AST 14 L (15-37) U/L ALT 16 (12-78) U/L Alkaline Phosphatase 85 (45-117) U/L Total Protein 6.9 (6.4-8.2) g/dL Albumin 3.0 L (3.4-5.0) g/dL TSH 0.619 (0.358-3.740) uIU/mL Free T4 1.14 (0.76-1.46) ng/dL Vancomycin Trough (5.0-10.0) mcg/mL 08/27/17 08/27/17 08/28/17 Range/Units 04:35 16:30 09:00 WBC (4.0-11.0) th/mm3 RBC (4.50-5.90) mil/mm3 Hgb (13.0-17.0) gm/dL Hct (39.0-51.0) % MCV (80.0-100.0) fL MCH (27.0-34.0) pg MCHC (32.0-36.0) % RDW (11.6-17.2) % Plt Count (150-450) th/mm3 MPV (7.0-11.0) fL Neut % (Auto) (16.0-70.0) % Lymph % (Auto) (9.0-44.0) % [place] % (Auto) (0.0-8.0) % Eos % (Auto) (0.0-4.0) % Baso % (Auto) (0.0-2.0) % Neut # (Auto) (1.8-7.7) th/mm3 Lymph # (Auto) (1.0-4.8) th/mm3 [place] # (Auto) (0.0-0.9) th/mm3 Eos # (Auto) (0.0-0.4) th/mm3 Baso # (Auto) (0.0-0.2) th/mm3 WBC Differential Differential Comment PT (9.8-11.6) sec INR Ratio Sodium (136-145) meq/L Potassium (3.5-5.1) meq/L Chloride (98-107) meq/L Carbon Dioxide (21.0-32.0) meq/L Anion Gap (5-15) meq/L BUN (7-18) mg/dL Creatinine 1.22 (0.60-1.30) mg/dL Estimated GFR 71 L (>89) mL/min Random Glucose (74-106) mg/dL Hemoglobin A1c (4.3-6.0) % Calcium (8.5-10.1) mg/dL Phosphorus (2.5-4.9) mg/dL Magnesium (1.5-2.5) mg/dL Total Bilirubin (0.2-1.0) mg/dL AST (15-37) U/L ALT (12-78) U/L Alkaline Phosphatase (45-117) U/L Total Protein (6.4-8.2) g/dL Albumin (3.4-5.0) g/dL TSH (0.358-3.740) uIU/mL Free T4 (0.76-1.46) ng/dL Vancomycin Trough 24.5 H 13.4 H (5.0-10.0) mcg/mL 08/30/17 Range/Units 07:00 WBC (4.0-11.0) th/mm3 RBC (4.50-5.90) mil/mm3 Hgb (13.0-17.0) gm/dL Hct (39.0-51.0) % MCV (80.0-100.0) fL MCH (27.0-34.0) pg MCHC (32.0-36.0) % RDW (11.6-17.2) % Plt Count (150-450) th/mm3 MPV (7.0-11.0) fL Neut % (Auto) (16.0-70.0) % Lymph % (Auto) (9.0-44.0) % [place] % (Auto) (0.0-8.0) % Eos % (Auto) (0.0-4.0) % Baso % (Auto) (0.0-2.0) % Neut # (Auto) (1.8-7.7) th/mm3 Lymph # (Auto) (1.0-4.8) th/mm3 [place] # (Auto) (0.0-0.9) th/mm3 Eos # (Auto) (0.0-0.4) th/mm3 Baso # (Auto) (0.0-0.2) th/mm3 WBC Differential Differential Comment PT (9.8-11.6) sec INR Ratio Sodium (136-145) meq/L Potassium (3.5-5.1) meq/L Chloride (98-107) meq/L Carbon Dioxide (21.0-32.0) meq/L Anion Gap (5-15) meq/L BUN (7-18) mg/dL Creatinine 1.12 (0.60-1.30) mg/dL Estimated GFR 79 L (>89) mL/min Random Glucose (74-106) mg/dL Hemoglobin A1c (4.3-6.0) % Calcium (8.5-10.1) mg/dL Phosphorus (2.5-4.9) mg/dL Magnesium (1.5-2.5) mg/dL Total Bilirubin (0.2-1.0) mg/dL AST (15-37) U/L ALT (12-78) U/L Alkaline Phosphatase (45-117) U/L Total Protein (6.4-8.2) g/dL Albumin (3.4-5.0) g/dL TSH (0.358-3.740) uIU/mL Free T4 (0.76-1.46) ng/dL Vancomycin Trough (5.0-10.0) mcg/mL Imaging Data Radiologist's impression: Hand MRI 08/25/17 00:00 CONCLUSION: 1. Diffuse nonspecific soft tissue swelling and edema throughout the subcutaneous soft tissues along the dorsum of the hand. No definite loculated or drainable fluid collections are demonstrated. 2. Nonspecific possible soft tissue injury or laceration to the subcutaneous soft tissues along the dorsum of the hand between the first and second metacarpals. Recommend correlation with direct visualization. Discharge Plan Discharge Disposition Patient Disposition: 01 Discharge Home Discharge Condition Condition: Good Discharge Order Discharge Orders: Discharge Order (Routine); Ordered 08/30/17 Ordered By: Rm Mensah Discharge Details Diagnosis: Abscess of right hand, Cellulitis of right hand, Abscess of forearm Physicians Team ED Provider: Sergei Guzman Primary Care Provider: Primary Care Endy,Stephania Attending Provider: Rm Mensah Other Providers: Ajay Wild ; [facility],Insurance Discharge Interventions Interventions: ED Discharge Assessment Last Done: 08/25/17 14:02 Vital Signs Last Done: 08/25/17 05:55 Status ED Status: Left Department Discharge Information Discharge Date/Time: 08/25/17 14:04
[2017-08-25 08:10] LABS: Baso # (Auto) 0.1 th/mm3 (0.0-0.2); Baso % (Auto) 0.6 % (0.0-2.0); Eos # (Auto) 0.4 th/mm3 (0.0-0.4); Eos % (Auto) 3.1 % (0.0-4.0); Hematocrit 41.1 % (39.0-51.0); Hemoglobin 13.2 gm/dL (13.0-17.0); Lymph # (Auto) 1.7 th/mm3 (1.0-4.8); Lymph % (Auto) 14.7 % (9.0-44.0); Mean Corpuscular HGB Conc 32.1 % (32.0-36.0); Mean Corpuscular Volume 77.9 fL (80.0-100.0); Mean Platelet Volume 7.1 fL (7.0-11.0); Mono # (Auto) 0.8 th/mm3 (0.0-0.9); Mono % (Auto) 6.7 % (0.0-8.0); Neut # (Auto) 8.9 th/mm3 (1.8-7.7); Neut % (Auto) 74.9 % (16.0-70.0); Platelet Count 386 th/mm3 (150-450); Red Blood Count 5.28 mil/mm3 (4.50-5.90); Red Cell Distribution Width 13.4 % (11.6-17.2); White Blood Count 11.8 th/mm3 (4.0-11.0)
[2017-08-25 08:24] LABS: Anion Gap 9 meq/L (5-15); Blood Urea Nitrogen 10 mg/dL (7-18); Calcium 9.5 mg/dL (8.5-10.1); Carbon Dioxide 25.8 meq/L (21.0-32.0); Chloride 107 meq/L (98-107); Glomerular Filtration Rate Greater Than 89 mL/min (>89); Glucose,Random 102 mg/dL (74-106); Sodium 142 meq/L (136-145)
[2017-08-25] MEDS ORDERED: Bisacodyl 10 MG Supp RECTAL PRN (09:24)
[2017-08-25] MEDS ORDERED: Temazepam 15 MG Capsule PO PRN (09:24)
[2017-08-25] MEDS ORDERED: Acetaminophen 325 MG Tablet PO PRN ×2 (09:24→09:28)
[2017-08-25] MEDS ORDERED: Naloxone Inj 0.4 MG/ML Vial IV.PUSH PRN (09:28)
[2017-08-25] MEDS ORDERED: Vancomycin Inj 1,000 MG in Sodium Chlor 0.9% Inj 250 ML IV.SIG ONE (09:29)
[2017-08-25] MEDS ORDERED: Vancomycin Consult Pharmacy 1 EACH OTHER SCH (10:00)
--- NOTE | 2017-08-25 11:59 | P.HPIM ---
History of Present Illness Service: [facility] Primary Care Physician: No Primary Care Physician Chief Complaint: Skin abscess right hand History of Present Illness: Patient is a 27-year-old -[place] gentleman. Who was initially seen in the hospital yesterday and was admitted to family medicine. Except the patient decided to leave AGAINST MEDICAL ADVICE yesterday for personal reasons. He returns today and apologizes for the fact that he left yesterday. Still has pain and possible abscess to the right hand complains of lots of pain helped with some cold therapy, worse with moving it and touching it. Patient states that he does not use IV drug use. Patient was given antibiotics yesterday, but again left medical advice. He now returns again today and will be started on antibiotics will get an MRI of the right hand and will consult hand surgery - Diagnosis (1) Abscess of right hand (2) Cellulitis of right hand - Inpatient Certification If this patient has been admitted as an Inpatient: I certify that the inpatient services were ordered in accordance with Medicare regulations governing the order. This includes certification that hospital inpatient services are reasonable and necessary and in the case of services not specified as inpatient-only under 42 CFR 419.22(n), that they are appropriately provided as inpatient services in accordance to with the 2-midnight benchmark under 43 CFR 412.3(e) Estimated Total Length of Stay (Days): 3 Plans for Post Hospital Care: Not yet determined Review of Systems All other systems reviewed negative except as stated in HPI Constitutional: Reports chills, Denies anorexia, Denies body ache(s), Denies daytime sleepiness, Denies fatigue, Denies malaise Eyes: Denies blind spots, Denies discharge, Denies pain Ears, Nose, Mouth, and Throat: Denies abnormal hearing, Denies dental pain, Denies ear pain, Denies lip swelling, Denies nasal discharge, Denies nose pain, Denies ringing in the ears Cardiovascular: Denies chest pain, Denies excessive sweating, Denies generalized swelling, Denies rapid, pounding, or irregular heartbeat, Denies shortness of breath with activity, Denies shortness of breath causing sudden awakening Respiratory: Denies change in phlegm color, Denies excessive phlegm production, Denies shortness of breath, Denies wheezing Gastrointestinal: Denies abdominal pain, Denies bright, red blood in stools, Denies constant urge to pass stool, Denies constipation Musculoskeletal: Reports joint pain (In right hand), Reports joint swelling (In right hand), Reports limited joint movement (In right hand), Denies abnormal walking Skin/Breast: Denies bleeding lesions, Denies breast pain Neurologic: Denies abnormal hearing, Denies abnormal walking, Denies dizziness, Denies localized weakness, Denies other visual disturbances Psychiatric: Denies abnormal sleep pattern, Denies hearing things others do not hear, Denies lack of enjoyment, Denies seeing things others do not see, Denies tactile hallucinations, Denies thoughts of hurting/killing yourself Endocrine: Denies cold intolerance, Denies increased hunger Hematologic/Lymphatic: Denies easy bleeding, Denies easy bruising, Denies enlarged lymph nodes Allergic/Immunologic: Denies GI upset with certain foods, Denies seasonal runny nose, Denies throat swelling PMFSH - History History Provided By: Patient - Medical / Surgical Hx Neg / Unobtainable Medical Problems Denied: Yes Surgical History: No Previous Surgery - Medical History Medical History: Medical History (Last Reviewed 08/25/17 @ 11:55 by Anselmo Vyas DO) Patient denies medical problems (Acute) - Surgical History Surgical History: Surgical History (Last Reviewed 08/25/17 @ 11:55 by Anselmo Vyas DO) No history of previous surgery (Acute) - Family History Family History: Family History (Last Updated 08/25/17 @ 11:50 by Anselmo Vyas DO) Other Family history of diabetes mellitus Family history of hypertension - Tobacco History Second Hand Smoke Exposure: No Tobacco Use In Past 30 Days: Yes Smoking Status: Current every day smoker Tobacco Type: Cigarettes Packs Per Day: 1 - Alcohol History How Often Do You Have a Drink Containing Alcohol: Never - Substance Use History Substance History: Active Abuse - Substance Use Type Marijuana Status: Active Route Used: Inhalation Frequency: daily Last Used: yesterday Reason for Use: Calm Down - Travel History Recent Travel in the [place] Within the Last 8 Weeks: No Recent Travel Out of the Country Within the Last 8 Weeks: No - Immunization History Tetanus Immunization: <5 Years Hx Influenza Vaccine This Season: No Medications and Allergies Active Medications: Active Medications Acetaminophen (Tylenol) 650 mg PO Q4H PRN PRN Reason: Temp > 100.4 Acetaminophen (Tylenol) 650 mg PO Q6H PRN PRN Reason: PAIN SCALE 1 TO 2 Al Hydroxide/Mg Hydroxide (Milk Of Magnesia Liq) 30 ml PO Q12H PRN PRN Reason: Mild Constipation Bisacodyl (Dulcolax Supp) 10 mg RECTAL DAILY PRN PRN Reason: SEVERE CONSITIPATION Sodium Chloride (Ns Inj) 1,000 mls @ 100 mls/hr IV.CONT .Q10H MARTINA Vancomycin HCl 1,000 mg/ (Sodium Chloride) 250 mls @ 250 mls/hr IV.SIG ONCE ONE Stop: 08/25/17 10:28 Pharmacy Profile Note (Vancomycin Consult Pharmacy) 0 mls @ 0 mls/hr OTHER UNSCH MARTINA Lactulose (Lactulose Liq) 30 ml PO DAILY PRN PRN Reason: SEVERE CONSITIPATION Metoclopramide HCl (Reglan Inj) 5 mg IV.PUSH Q6H PRN; Protocol PRN Reason: NAUSEA OR VOMITING Morphine Sulfate (Morphine Inj) 2 mg IV.PUSH Q3H PRN PRN Reason: PAIN 3-5; IF UABLE TO TAKE PO Morphine Sulfate (Morphine Inj) 4 mg IV.PUSH Q3H PRN PRN Reason: PAIN 6-10;IF UNABLE TO TAKE PO Morphine Sulfate (Morphine Inj) 4 mg IV.PUSH Q3H PRN PRN Reason: BREAKTHROUGH PAIN Naloxone HCl (Narcan Inj) 0.4 mg IV.PUSH UNSCH PRN PRN Reason: SEE LABEL COMMENTS Ondansetron HCl (Zofran Odt) 4 mg PO Q6H PRN PRN Reason: NAUSEA OR VOMITING Oxycodone/Acetaminophen (Percocet 10/325 Mg) 1 tab PO Q6H PRN PRN Reason: PAIN SCALE 6 TO 10 Oxycodone/Acetaminophen (Percocet 5/325 Mg) 1 tab PO Q6H PRN PRN Reason: PAIN SCALE 3 TO 5 Senna/Docusate Sodium (Ana-Colace) 1 tab PO BID REPLACED BY [facility] Sennosides (Senokot) 17.2 mg PO Q12H PRN PRN Reason: Moderate Constipation Temazepam (Restoril) 15 mg PO HS PRN PRN Reason: INSOMNIA Allergies Allergy/AdvReac Type Severity Reaction Status Date / Time No Known Allergies Allergy Verified 08/25/17 07:42 Home Medications Medication Instructions Recorded Confirmed Type No Known Home Medications 08/24/17 08/25/17 History Exam Vital signs: Vital Signs 08/25/17 05:53 08/25/17 05:55 Temperature 98.4 F Pulse Rate 80 74 Respiratory Rate 16 15 Blood Pressure 142/57 H 138/63 Pulse Oximetry 100 99 Intake & Output 08/24/17 08/25/17 08/25/17 18:59 06:59 18:59 Weight 93.894 kg Narrative: GENERAL: Awake alert and oriented 3 talkative and cooperative SKIN: Warm and dry. Right hand is swollen and tender with decreased range of motion with tenderness and decreased range of motion and erythema HEAD: Atraumatic. Normocephalic. EYES: Pupils equal and round. No scleral icterus. No injection or drainage. Extraocular muscles intact ENT: No nasal bleeding or discharge. Mucous membranes pink and moist. Tongue is midline NECK: Trachea midline. No JVD. CARDIOVASCULAR: Regular rate and rhythm. S1-S2 no S3 or S4 RESPIRATORY: No accessory muscle use. Clear to auscultation. Breath sounds equal bilaterally. GASTROINTESTINAL: Abdomen soft, non-tender, nondistended. Hepatic and splenic margins not palpable. MUSCULOSKELETAL: Extremities without clubbing, cyanosis, or edema. No obvious deformities. Right hand is swollen with decreased range of motion and pain and tenderness in an area of erythema NEUROLOGICAL: Awake and alert. No obvious cranial nerve deficits. Motor grossly within normal limits. Five out of 5 muscle strength in the arms and legs. Normal speech. PSYCHIATRIC: Appropriate mood and affect; insight and judgment normal. Results - Labs CBC & Chem 7: 08/25/17 07:55 08/25/17 07:55 Labs: Short CBC 08/25/17 Range/Units 07:55 WBC 11.8 H (4.0-11.0) th/mm3 Hgb 13.2 (13.0-17.0) gm/dL Hct 41.1 (39.0-51.0) % Plt Count 386 (150-450) th/mm3 BMP 08/25/17 07:55 Sodium 142 Potassium 4.0 Chloride 107 Carbon Dioxide 25.8 BUN 10 Creatinine 0.99 Calcium 9.5 - Imaging Laboratory Results WBC 11.8 th/mm3 (4.0-11.0) H 08/25/17 07:55 RBC 5.28 mil/mm3 (4.50-5.90) 08/25/17 07:55 Hgb 13.2 gm/dL (13.0-17.0) 08/25/17 07:55 Hct 41.1 % (39.0-51.0) 08/25/17 07:55 MCV 77.9 fL (80.0-100.0) L 08/25/17 07:55 MCH 25.0 pg (27.0-34.0) L 08/25/17 07:55 MCHC 32.1 % (32.0-36.0) 08/25/17 07:55 RDW 13.4 % (11.6-17.2) 08/25/17 07:55 Plt Count 386 th/mm3 (150-450) 08/25/17 07:55 MPV 7.1 fL (7.0-11.0) 08/25/17 07:55 Neut % (Auto) 74.9 % (16.0-70.0) H 08/25/17 07:55 Lymph % (Auto) 14.7 % (9.0-44.0) 08/25/17 07:55 [place] % (Auto) 6.7 % (0.0-8.0) 08/25/17 07:55 Eos % (Auto) 3.1 % (0.0-4.0) 08/25/17 07:55 Baso % (Auto) 0.6 % (0.0-2.0) 08/25/17 07:55 Neut # (Auto) 8.9 th/mm3 (1.8-7.7) H 08/25/17 07:55 Lymph # (Auto) 1.7 th/mm3 (1.0-4.8) 08/25/17 07:55 [place] # (Auto) 0.8 th/mm3 (0.0-0.9) 08/25/17 07:55 Eos # (Auto) 0.4 th/mm3 (0.0-0.4) 08/25/17 07:55 Baso # (Auto) 0.1 th/mm3 (0.0-0.2) 08/25/17 07:55 WBC Differential . 08/25/17 07:55 Differential Comment Auto diff final 08/25/17 07:55 Sodium 142 meq/L (136-145) 08/25/17 07:55 Potassium 4.0 meq/L (3.5-5.1) 08/25/17 07:55 Chloride 107 meq/L (98-107) 08/25/17 07:55 Carbon Dioxide 25.8 meq/L (21.0-32.0) 08/25/17 07:55 Anion Gap 9 meq/L (5-15) 08/25/17 07:55 BUN 10 mg/dL (7-18) 08/25/17 07:55 Creatinine 0.99 mg/dL (0.60-1.30) 08/25/17 07:55 Estimated GFR Greater than 89 mL/min (>89) 08/25/17 07:55 Random Glucose 102 mg/dL (74-106) 08/25/17 07:55 Calcium 9.5 mg/dL (8.5-10.1) 08/25/17 07:55 Caprini VTE Risk Assessment Caprini VTE Risk Assessment: No/Low Risk (score <= 1) Caprini Risk Assessment Model: Point Value = 1 Point Value = 2 Point Value = 3 Point Value = 5 Age 41-60 Minor surgery BMI > 25 kg/m2 Swollen legs Varicose veins or History of unexplained or recurrent spontaneous Oral contraceptives or hormone replacement Sepsis (< 1 month) Serious lung disease, including pneumonia (< 1 month) Abnormal pulmonary function Acute myocardial infarction Congestive heart failure (< 1 month) History of inflammatory bowel disease Medical patient at bed rest Age 61-74 Arthroscopic surgery Major open surgery (> 45 min) Laparoscopic surgery (> 45 min) Malignancy Confined to bed (> 72 hours) Immobilizing plaster cast Central venous access Age >= 75 History of VTE Family history of VTE Factor V Leiden Prothrombin [id number] Lupus anticoagulant Anticardiolipin antibodies Elevated serum homocysteine Heparin-induced thrombocytopenia Other congenital or acquired thrombophilia Stroke (< 1 month) Elective arthroplasty Hip, pelvis, or leg fracture Acute spinal cord injury (< 1 month) Prophylaxis Regimen: Total Risk Factor Score Risk Level Prophylaxis Regimen 0-1 Low Early ambulation 2 Moderate Order ONE of the following: *Sequential Compression Device (SCD) *Heparin 5000 units SQ BID 3-4 Higher Order ONE of the following medications: *Heparin 5000 units SQ TID *Enoxaparin/Lovenox 40 mg SQ daily (WT < 150 kg, CrCl > 30 mL/min) *Enoxaparin/Lovenox 30 mg SQ daily (WT < 150 kg, CrCl > 10-29 mL/min) *Enoxaparin/Lovenox 30 mg SQ BID (WT < 150 kg, CrCl > 30 mL/min) AND/OR *Sequential Compression Device (SCD) 5 or more Highest Order ONE of the following medications: *Heparin 5000 units SQ TID (Preferred with Epidurals) *Enoxaparin/Lovenox 40 mg SQ daily (WT < 150 kg, CrCl > 30 mL/min) *Enoxaparin/Lovenox 30 mg SQ daily (WT < 150 kg, CrCl > 10-29 mL/min) *Enoxaparin/Lovenox 30 mg SQ BID (WT < 150 kg, CrCl > 30 mL/min) AND *Sequential Compression Device (SCD) Assessment and Plan - Assessment (1) Abscess of right hand Code(s): L02.511 - Cutaneous abscess of right hand Status: Acute (2) Cellulitis of right hand Code(s): L03.113 - Cellulitis of right upper limb Status: Acute - Plan Right hand abscess/cellulitis -We will consult hand surgery -We will get an MRI of the right hand -Continue on antibiotics with vancomycin and Zosyn Tobacco abuse recommend smoking cessation Marijuana use recommend marijuana cessation Leukocytosis recommend antibiotics and treatment and not leaving AGAINST MEDICAL ADVICE again Code Status: FULL CODE Discussed Condition With: PHONG RN AND PT AND ER Discharge Planning: PENDING IMPROVEMENT OF RIGHT HAND
[2017-08-25] MEDS: Sod Chloride 0.9% Inj 1,000 ML IV.CONT SCH ×2 (13:04→20:18)
[2017-08-25] MEDS: oxyCODONE/Acetaminophen 10/325 Tablet PO PRN ×2 (13:05→18:19)
[2017-08-25] MEDS: Piperacil/Tazo 4.5 GM Premix 4.5 GM/100 ML BAG IV.SIG SCH ×2 (13:55→19:56)
[2017-08-25] MEDS: Morphine Inj 4 MG/ML Vial IV.PUSH PRN ×2 (14:54→20:06)
[2017-08-25] MEDS ORDERED: Lidocaine PF 1% Inj 30 ML Vial ONE (15:18)
[2017-08-25] MEDS ORDERED: Lidocaine 1% Inj 30 ML Vial I-DERMAL ONE (15:30)
--- NOTE | 2017-08-25 16:56 | P.CON ---
History of Present Illness Service: Hand surgery Consult date: 08/25/17 Reason for Consult: Right upper extremity abscesses Primary Care Provider: No Primary Care Physician Family Provider: No Primary Care Physician Chief Complaint: Skin abscess right hand History of Present Illness: Patient is a 27-year-old male who presents with a one-week history of right upper extremity abscesses. Patient first noted a "bug bite" at the dorsal aspect of his first metacarpal on the right. He reports that this slowly began enlarging as well as becoming more painful. Couple days ago he noticed an area over his volar proximal forearm which similarly began to swell, though this was less painful. He reports that yesterday the dorsal hand became moderately to severely painful in the same area. Patient denies previous episodes like this. Patient denies past medical history past surgical history meds or allergies Review of systems negative to presenting complaint except as noted in HPI Family history negative to presenting complaint Patient endorses nicotine use PMFSH - History History Provided By: Patient - Medical / Surgical Hx Neg / Unobtainable Medical Problems Denied: Yes - Medical History Medical History: Medical History (Last Reviewed 08/25/17 @ 11:55 by Anselmo Vyas DO) Patient denies medical problems (Acute) - Surgical History Surgical History: Surgical History (Last Reviewed 08/25/17 @ 11:55 by Anselmo Vyas DO) No history of previous surgery (Acute) - Family History Family History: Family History (Last Updated 08/25/17 @ 11:50 by Anselmo Vyas DO) Other Family history of diabetes mellitus Family history of hypertension - Tobacco History Second Hand Smoke Exposure: No Tobacco Use In Past 30 Days: Yes Smoking Status: Current every day smoker Tobacco Type: Cigarettes Packs Per Day: 1 - Alcohol History How Often Do You Have a Drink Containing Alcohol: Never - Substance Use History Substance History: Active Abuse - Substance Use Type Marijuana Status: Active Route Used: Inhalation Frequency: daily Last Used: yesterday Reason for Use: Calm Down - Travel History Recent Travel in the [place] Within the Last 8 Weeks: No Recent Travel Out of the Country Within the Last 8 Weeks: No - Immunization History Tetanus Immunization: <5 Years Hx Influenza Vaccine This Season: No Medications and Allergies Active Medications: Active Medications Acetaminophen (Tylenol) 650 mg PO Q4H PRN PRN Reason: Temp > 100.4 Acetaminophen (Tylenol) 650 mg PO Q6H PRN PRN Reason: PAIN SCALE 1 TO 2 Al Hydroxide/Mg Hydroxide (Milk Of Magnesia Liq) 30 ml PO Q12H PRN PRN Reason: Mild Constipation Bisacodyl (Dulcolax Supp) 10 mg RECTAL DAILY PRN PRN Reason: SEVERE CONSITIPATION Sodium Chloride (Ns Inj) 1,000 mls @ 100 mls/hr IV.CONT .Q10H [facility] Last Admin: 08/25/17 13:04 Dose: 100 mls/hr Pharmacy Profile Note (Vancomycin Consult Pharmacy) 0 mls @ 0 mls/hr OTHER UNSCH [facility] Piperacillin/Tazobactam/Dextrose (Zosyn 4.5 Gm Premix) 4.5 gm in 100 mls @ 200 mls/hr IV.SIG Q6H [facility] Last Admin: 08/25/17 13:55 Dose: 200 mls/hr Vancomycin HCl 1,750 mg/ (Sodium Chloride) 517.5 mls @ 250 mls/hr IV.SIG Q12H [facility] Lactulose (Lactulose Liq) 30 ml PO DAILY PRN PRN Reason: SEVERE CONSITIPATION Metoclopramide HCl (Reglan Inj) 5 mg IV.PUSH Q6H PRN; Protocol PRN Reason: NAUSEA OR VOMITING Miscellaneous Information ([facility] Ordered Lab Info) 0 each OTHER ONCE ONE Stop: 08/27/17 03:46 Morphine Sulfate (Morphine Inj) 2 mg IV.PUSH Q3H PRN PRN Reason: PAIN 3-5; IF UABLE TO TAKE PO Morphine Sulfate (Morphine Inj) 4 mg IV.PUSH Q3H PRN PRN Reason: PAIN 6-10;IF UNABLE TO TAKE PO Last Admin: 08/25/17 14:54 Dose: 4 mg Morphine Sulfate (Morphine Inj) 4 mg IV.PUSH Q3H PRN PRN Reason: BREAKTHROUGH PAIN Naloxone HCl (Narcan Inj) 0.4 mg IV.PUSH UNSCH PRN PRN Reason: SEE LABEL COMMENTS Nicotine (Habitrol 14 Mg Patch.24 Hr) 1 patch T-DERMAL DAILY [facility] Ondansetron HCl (Zofran Odt) 4 mg PO Q6H PRN PRN Reason: NAUSEA OR VOMITING Oxycodone/Acetaminophen (Percocet 10/325 Mg) 1 tab PO Q6H PRN PRN Reason: PAIN SCALE 6 TO 10 Last Admin: 08/25/17 13:05 Dose: 1 tab Oxycodone/Acetaminophen (Percocet 5/325 Mg) 1 tab PO Q6H PRN PRN Reason: PAIN SCALE 3 TO 5 Patch Removal (Remove Old Patch) 1 each T-DERMAL HS [facility] Senna/Docusate Sodium (Ana-Colace) 1 tab PO BID [facility] Sennosides (Senokot) 17.2 mg PO Q12H PRN PRN Reason: Moderate Constipation Temazepam (Restoril) 15 mg PO HS PRN PRN Reason: INSOMNIA Allergies Allergy/AdvReac Type Severity Reaction Status Date / Time No Known Allergies Allergy Verified 08/25/17 07:42 Home Medications Medication Instructions Recorded Confirmed Type No Known Home Medications 08/24/17 08/25/17 History Physical Exam Vital signs: Vital Signs 08/25/17 05:53 08/25/17 05:55 08/25/17 13:41 Temperature 98.4 F Pulse Rate 80 74 75 Respiratory Rate 16 15 16 Blood Pressure 142/57 H 138/63 131/85 Pulse Oximetry 100 99 100 Intake & Output 08/24/17 08/25/17 08/25/17 18:59 06:59 18:59 Weight 93.894 kg Narrative: No apparent anxiety moist mucous membranes PERRLA skin without rash respirations nonlabored moves all 4 extremities to command digits warm well perfused Right upper extremity Proximal volar forearm with 3 x 2 cm area of edema and mild erythema, which is nontender Dorsal proximal first metacarpal/first webspace with 4 cm diameter area of swelling and erythema which is very painful and tender Full active range of motion Sensation intact light touch distally Assessment and Plan - Assessment (1) Hand abscess Code(s): L02.519 - Cutaneous abscess of unspecified hand Status: Acute (2) Abscess of forearm Code(s): L02.419 - Cutaneous abscess of limb, unspecified Status: Acute - Plan 27-year-old male with right forearm and hand abscesses Risks benefits and alternative treatments discussed All questions answered and the patient expressed understanding Patient elected to assume the risks of incision and drainage of the above 2 abscesses Informed consent obtained A timeout was performed with the nurse present Both areas were instilled with 1% lidocaine plain Each area was incised sharply and blunt dissection was used to explore the subjacent abscess pocket The forearm abscess showed minimal purulence The dorsal thumb abscess had significant purulence and the abscess cavity was found to be roughly 3.5 cm. The dorsal thumb abscess was packed with an iodoform wick. Both sites were cleaned and dressed with dry gauze and wrapped with a clean Agree with antibiotics per primary Please have patient soak right upper extremity, especially his hand, and an emesis basin filled with Betadine and warm soapy water in a one-to-one fashion, for roughly 15 minutes 3 times daily Afterwards please replace the iodoform wick in the dorsal hand incision Please call with questions
--- NOTE | 2017-08-25 17:10 | OTSOAPIP ---
RECEIVED OCCUPATIONAL THERAPY CONSULT. ATTEMPTED TO SEE PATIENT, HOWEVER PATIENT WAS HAVING BEDSIDE PROCEDURE DONE. WILL FOLLOW UP WITH PATIENT TOMORROW. INTERDISCIPLINARY COMMUNICATION: REVIEWED ELECTRONIC MEDICAL RECORD, SPOKE WITH RN Therapist: Mariaelena Falcon OTR/Ruth Signature on file
--- NOTE | 2017-08-25 17:44 | MR ---
EXAM DATE: 08/25/2017 5:33 PM EDT AGE/SEX: 27 years / Male INDICATIONS: Abscess. CLINICAL DATA: This is the patient's initial encounter. Patient reports that signs and symptoms have been present for 3 days and indicates a pain score of 7/10. MEDICAL/SURGICAL HISTORY: None. None. [place] [facility] [place] 3[place]. . TECHNIQUE: Multiplanar, multisequence MRI examination was performed without contrast and after the i ntravenous administration of 18 ml Omniscan (gadodiamide) contrast as a single exam dose. FINDINGS: Marrow: There is homogeneous signal in the marrow of the visualized bones of the hand. Metacarpal-Phalangeal Joints: The MCP joints are unremarkable with no evidence of erosion, effusion, or malalignment. Interphalangeal Joints: The PIP and DIP joints are unremarkable with no evidence of erosion, effusio n or malalignment. Extensor Tendons: The visualized extensor tendons are intact. Flexor Tendons: The visualized flexor tendons are intact. Soft Tissues: There is diffuse nonspecific soft tissue swelling in the subcutaneous soft tissues pre dominantly along the dorsum of the hand. No definite loculated fluid collections are demonstrated. Ho wever there appears to be focal abnormality to the skin and subcutaneous soft tissues along the dorsu m of the hand between the first and second metacarpals. Recommend correlation with direct visualizati on. Post Contrast: There are no abnormal areas of enhancement in the marrow, muscle or soft tissues on i mages obtained after intravenous administration of gadolinium. CONCLUSION: 1. Diffuse nonspecific soft tissue swelling and edema throughout the subcutaneous soft tissues along the dorsum of the hand. No definite loculated or drainable fluid collections are demonstrated. 2. Nonspecific possible soft tissue injury or laceration to the subcutaneous soft tissues along the dorsum of the hand between the first and second metacarpals. Recommend correlation with direct visual ization. Electronically signed by: Abhishek Greenfield MD 08/25/2017 5:42 PM EDT
[2017-08-25] MEDS ORDERED: REMOVE OLD NICODERM (NICOTINE) PATCH T-DERMAL SCH (21:00)
[2017-08-25] MEDS: Senna/Docusate Sodium 8.6/50 MG Tablet PO SCH (21:29)
[2017-08-26] MEDS: Piperacil/Tazo 4.5 GM Premix 4.5 GM/100 ML BAG IV.SIG SCH ×4 (01:22→18:36)
[2017-08-26] MEDS: oxyCODONE/Acetaminophen 10/325 Tablet PO PRN ×4 (02:03→22:12)
[2017-08-26] MEDS: Vancomycin Inj 1,750 MG in Sodium Chlor 0.9% Inj 500 ML IV.SIG SCH ×3 (04:57→16:00)
[2017-08-26] MEDS: Morphine Inj 4 MG/ML Vial IV.PUSH PRN ×4 (07:27→19:16)
--- NOTE | 2017-08-26 08:59 | P.PN ---
Subjective Interval history: Mr. Garcia was afebrile with mild HTN overnight. Patient reports doing well today. He states that his right hand is ok in terms of pain. Patient does not report chest pain, shortness of breath, abdominal pain , or abnormal BM/urination. Patient states he received tetanus vacc <5 years ago Physical Exam Vital signs: Vital Signs 08/25/17 13:41 08/25/17 16:00 08/25/17 20:00 Temperature 98.3 F 98.2 F Pulse Rate 75 65 56 L Respiratory Rate 16 16 16 Blood Pressure 131/85 139/76 118/64 Pulse Oximetry 100 100 16 L 08/26/17 00:00 08/26/17 04:00 Temperature 98.6 F 97.3 F L Pulse Rate 60 54 L Respiratory Rate 16 16 Blood Pressure 120/68 137/82 Pulse Oximetry 100 100 Intake & Output 08/25/17 08/26/17 08/26/17 18:59 06:59 18:59 Intake Total 100 / 100 1300 / 1300 Output Total 950 / 950 Balance 100 / 100 350 / 350 Weight 95.2 kg Intake: IV 100 / 100 700 / 700 NS Inj 1,000 ML @ 100 mls/hr IV 500 / 500 .CONT .Q10H [facility] Rx#:[id number] Zosyn 4.5 GM Premix 4.5 gm In 100 / 100 200 / 200 100 ml @ 200 mls/hr IV.SIG Q6H [facility] Rx#:[id number] Oral 600 / 600 Output: Urine 950 / 950 Stool 0 / 0 Narrative: Gen: NAD Skin: R hand covered; wound not visualized CV: regular rate and rhythm; normal perfusion Resp: CTAB Abd: Nontender to palpation; normal BS Ext: Grossly normal strength and ROM Neuro: CN grossly normal. Grossly normal peripheral motor/sensory function Results - Labs CBC & Chem 7: 08/25/17 07:55 08/25/17 07:55 Microbiology 08/25/17 15:45 Abscess - Arm Gram Stain - Final - Imaging Impressions Hand MRI 08/25/17 00:00 CONCLUSION: 1. Diffuse nonspecific soft tissue swelling and edema throughout the subcutaneous soft tissues along the dorsum of the hand. No definite loculated or drainable fluid collections are demonstrated. 2. Nonspecific possible soft tissue injury or laceration to the subcutaneous soft tissues along the dorsum of the hand between the first and second metacarpals. Recommend correlation with direct visualization. Assessment and Plan - Assessment (1) Abscess of right hand Code(s): L02.511 - Cutaneous abscess of right hand Status: Acute (2) Cellulitis of right hand Code(s): L03.113 - Cellulitis of right upper limb Status: Acute - Plan Mr. Garcia is a 27 yo M admitted for R hand cellulitis Right hand abscess/cellulitis Impression: Associated with leukocytosis 08/25. Tetanus vacc <5 yrs ago. Hand surgery consulted; incision and drainage performed 08/25 with subsequent packing MRI hand 07/26- nonspecific swelling; no definite collections; correlation recommended -Hand surgery consulted -Continue soaking RUE, emesis basin with Betadine and soapy water x15 min TID ; replace wic -Continue antibiotics -Vancomycin -Zosyn -Will follow cultures prior to d/c -Will repeat CBC Tobacco abuse recommend smoking cessation Intermittent HTN -Will give PRN Hydralazine and monitor DVT PPX -Ambulatory; will defer chemical PPX Code Status: Full code
[2017-08-26] MEDS: Sod Chloride 0.9% Inj 1,000 ML IV.CONT SCH ×2 (09:50→22:38)
[2017-08-26] MEDS: Senna/Docusate Sodium 8.6/50 MG Tablet PO SCH ×2 (12:03→21:16)
[2017-08-26 14:12] LABS: Baso % (Auto) 0.7 % (0.0-2.0); Eos # (Auto) 0.3 th/mm3 (0.0-0.4); Eos % (Auto) 5.2 % (0.0-4.0); Hematocrit 38.6 % (39.0-51.0); Hemoglobin 12.6 gm/dL (13.0-17.0); Lymph # (Auto) 1.7 th/mm3 (1.0-4.8); Lymph % (Auto) 28.9 % (9.0-44.0); Mean Corpuscular HGB Conc 32.7 % (32.0-36.0); Mean Corpuscular Hemoglobin 25.5 pg (27.0-34.0); Mean Corpuscular Volume 77.7 fL (80.0-100.0); Mean Platelet Volume 7.2 fL (7.0-11.0); Mono # (Auto) 0.6 th/mm3 (0.0-0.9); Mono % (Auto) 9.8 % (0.0-8.0); Neut # (Auto) 3.3 th/mm3 (1.8-7.7); Neut % (Auto) 55.4 % (16.0-70.0); Platelet Count 395 th/mm3 (150-450); Red Blood Count 4.97 mil/mm3 (4.50-5.90); Red Cell Distribution Width 13.3 % (11.6-17.2)
[2017-08-26 14:27] LABS: INR 1.1 Ratio
[2017-08-26 14:40] LABS: Alanine Aminotransferase 16 U/L (12-78); Anion Gap 7 meq/L (5-15); Aspartate Aminotransferase 14 U/L (15-37); Blood Urea Nitrogen 7 mg/dL (7-18); Calcium 9.1 mg/dL (8.5-10.1); Carbon Dioxide 27.6 meq/L (21.0-32.0); Chloride 109 meq/L (98-107); Glomerular Filtration Rate Greater Than 89 mL/min (>89); Glucose,Random 92 mg/dL (74-106); Magnesium 2.1 mg/dL (1.5-2.5); Phosphorus 3.2 mg/dL (2.5-4.9); Sodium 144 meq/L (136-145)
[2017-08-26 14:49] LABS: Alkaline Phosphatase 85 U/L (45-117); Free T4 (Free Thyroxine) 1.14 ng/dL (0.76-1.46); Thyroid Stimulating Hormone 0.619 uIU/mL (0.358-3.740); Total Protein 6.9 g/dL (6.4-8.2)
[2017-08-26 16:17] LABS: Hemoglobin A1c 5.3 % (4.3-6.0)
[2017-08-27] MEDS: Morphine Inj 4 MG/ML Vial IV.PUSH PRN ×5 (00:58→20:13)
[2017-08-27] MEDS: Piperacil/Tazo 4.5 GM Premix 4.5 GM/100 ML BAG IV.SIG SCH ×4 (00:59→19:00)
[2017-08-27] MEDS ORDERED: Pharmacy Ordered Lab Info OTHER ONE ×2 (03:45→15:45)
[2017-08-27] MEDS: Vancomycin Inj 1,750 MG in Sodium Chlor 0.9% Inj 500 ML IV.SIG SCH ×2 (04:19→17:57)
[2017-08-27] MEDS: oxyCODONE/Acetaminophen 10/325 Tablet PO PRN ×5 (04:19→22:13)
[2017-08-27] MEDS: Senna/Docusate Sodium 8.6/50 MG Tablet PO SCH ×2 (08:47→23:11)
--- NOTE | 2017-08-27 16:57 | P.PN ---
Subjective Interval history: afebrile no complains of pain feeling better, states swelling improved righ thum/eminence- , hand, wrist- good range of motion- per patient I and D done - some purulence right forearm - no pain- I and d done- no pus came out Physical Exam Vital signs: Vital Signs 08/26/17 20:00 08/27/17 00:00 08/27/17 04:00 Temperature 98.3 F 97.1 F L 97.2 F L Pulse Rate 54 L 65 53 L Respiratory Rate 18 16 16 Blood Pressure 139/69 132/67 115/62 Pulse Oximetry 98 100 99 08/27/17 08:00 08/27/17 12:00 08/27/17 16:00 Temperature 97.8 F 97.9 F 98 F Pulse Rate 47 L 55 L 51 L Respiratory Rate 18 18 18 Blood Pressure 135/75 143/71 H 130/73 Pulse Oximetry 100 99 100 Intake & Output 08/26/17 08/27/17 08/27/17 18:59 06:59 18:59 Intake Total 2195.0 / 2195.0 1680 / 1680 100 / 100 Balance 2195.0 / 2195.0 1680 / 1680 100 / 100 Weight 97.2 kg Intake: IV 1235.0 / 1235.0 1200 / 1200 100 / 100 NS Inj 1,000 ML @ 100 mls/hr IV 1000 / 1000 .CONT .Q10H [facility] Rx#:[id number] Zosyn 4.5 GM Premix 4.5 gm In 200 / 200 200 / 200 100 / 100 100 ml @ 200 mls/hr IV.SIG Q6H [facility] Rx#:[id number] Vancomycin Inj 1,750 MG In NS 1035.0 / 1035.0 Inj 500 ML @ 250 mls/hr IV.SIG Q12H [facility] Rx#:[id number] Oral 960 / 960 480 / 480 Other: # Voids 4 1 # Bowel Movements 2 - Constitutional no acute distress - Routine HEENT Exam Head: Present: normocephalic Eye: Present: PERRL ENT: Present: mucous membranes moist - Routine Respiratory Exam Present: CTA bilaterally - Routine Cardiovascular Exam Present: RRR - Routine Abdominal Exam Present: soft, normoactive bowel sounds (RigHt UP- forearm- superficial incision site- dry, no drainage) - Routine Extremities Exam Comments: right UE- forearm area- post inciison site- dry, no purulence right thenar eminence- S/P I and D- packing in place- edges dry, no foul odor ++ radial pulses good range of motion of wrist and elbow and fingers Results - Labs CBC & Chem 7: 08/26/17 13:33 08/26/17 13:33 Laboratory Results - last 24 hr 08/26/17 08/27/17 13:33 04:35 Hemoglobin A1c 5.3 Vancomycin Trough 24.5 H Microbiology 08/25/17 15:45 Abscess - Arm Gram Stain - Final 08/25/17 15:45 Abscess - Arm Wound Culture - Final Assessment and Plan - Assessment (1) Abscess of right hand Code(s): L02.511 - Cutaneous abscess of right hand Status: Acute (2) Cellulitis of right hand Code(s): L03.113 - Cellulitis of right upper limb Status: Acute - Plan Mr. Garcia is a 27 yo M admitted for R hand cellulitis Right hand abscess/cellulitis S/P I and D Impression: Associated with leukocytosis 08/25. Tetanus vacc <5 yrs ago. Hand surgery consulted; incision and drainage performed 08/25 with subsequent packing MRI hand 07/26- nonspecific swelling; no definite collections; correlation recommended -Hand surgery consulted -Continue soaking RUE, emesis basin with Betadine and soapy water x15 min TID ; replace wic -Continue antibiotics -Vancomycin -Zosyn -Will follow cultures - initial gram stain growing gram + cocci, ff final c and S Tobacco abuse recommend smoking cessation Intermittent HTN- monitor -Will give PRN Hydralazine and monitor DVT PPX -Ambulatory; will defer chemical PPX Code Status: Full code
[2017-08-28] MEDS: Sod Chloride 0.9% Inj 1,000 ML IV.CONT SCH ×6 (00:01→23:22)
[2017-08-28] MEDS: Piperacil/Tazo 4.5 GM Premix 4.5 GM/100 ML BAG IV.SIG SCH ×4 (00:02→19:50)
[2017-08-28] MEDS: Morphine Inj 4 MG/ML Vial IV.PUSH PRN ×4 (00:03→23:22)
[2017-08-28] MEDS: oxyCODONE/Acetaminophen 10/325 Tablet PO PRN ×5 (04:01→20:57)
[2017-08-28] MEDS: Vancomycin Inj 1,750 MG in Sodium Chlor 0.9% Inj 500 ML IV.SIG SCH ×2 (04:01→16:32)
[2017-08-28] MEDS: Senna/Docusate Sodium 8.6/50 MG Tablet PO SCH ×2 (12:21→21:53)
--- NOTE | 2017-08-28 14:10 | P.PN ---
Subjective Interval history: feeling better - right arm better range of motion Physical Exam Vital signs: Vital Signs 08/27/17 16:00 08/27/17 20:00 08/28/17 08:00 Temperature 98 F 98.0 F 98.3 F Pulse Rate 51 L 72 58 L Respiratory Rate 18 18 20 Blood Pressure 130/73 153/83 H 123/65 Pulse Oximetry 100 99 98 08/28/17 12:00 08/28/17 13:43 Temperature 98.3 F 97.9 F Pulse Rate 62 75 Respiratory Rate 20 20 Blood Pressure 123/65 134/72 Pulse Oximetry 98 100 Intake & Output 08/27/17 08/28/17 08/28/17 18:59 06:59 18:59 Intake Total 1160 / 1160 817.5 / 817.5 Balance 1160 / 1160 817.5 / 817.5 Intake: IV 200 / 200 817.5 / 817.5 Zosyn 4.5 GM Premix 4.5 gm In 200 / 200 300 / 300 100 ml @ 200 mls/hr IV.SIG Q6H [facility] Rx#:[id number] Vancomycin Inj 1,750 MG In NS 517.5 / 517.5 Inj 500 ML @ 250 mls/hr IV.SIG Q12H [facility] Rx#:[id number] Oral 960 / 960 Other: # Voids 6 # Bowel Movements 2 Narrative: awake and alert, no distreaa lungs- no rales regular rhythm abdomen soft right UE- forearm- dry incision- , swelling and erytehma improved hand- minimal drainage better range of motion good radial pulses Results - Labs CBC & Chem 7: 08/26/17 13:33 08/28/17 09:00 Laboratory Results - last 24 hr 08/27/17 08/28/17 16:30 09:00 Creatinine 1.22 Estimated GFR 71 L Vancomycin Trough 13.4 H Microbiology 08/25/17 15:45 Abscess - Arm Gram Stain - Final 08/25/17 15:45 Abscess - Arm Wound Culture - Final Assessment and Plan - Assessment (1) Abscess of right hand Code(s): L02.511 - Cutaneous abscess of right hand Status: Acute (2) Cellulitis of right hand Code(s): L03.113 - Cellulitis of right upper limb Status: Acute - Plan Mr. Garcia is a 27 yo M admitted for R hand cellulitis Right hand abscess/cellulitis S/P I and D growing gram + cocci in clusters Impression: Associated with leukocytosis 08/25. Tetanus vacc <5 yrs ago. Hand surgery consulted; incision and drainage performed 08/25 with subsequent packing MRI hand 07/26- nonspecific swelling; no definite collections; correlation recommended -Hand surgery consulted -Continue soaking RUE, emesis basin with Betadine and soapy water x15 min TID ; replace wic -Continue antibiotics -Vancomycin -Zosyn -Will follow cultures - initial gram stain growing gram + cocci, ff final c and S still pending Tobacco abuse recommend smoking cessation Intermittent HTN- monitor- improved -Will give PRN Hydralazine and monitor DVT PPX -Ambulatory; will defer chemical PPX Code Status: Full code
[2017-08-29] MEDS: Piperacil/Tazo 4.5 GM Premix 4.5 GM/100 ML BAG IV.SIG SCH ×4 (00:18→18:04)
[2017-08-29] MEDS: Vancomycin Inj 1,750 MG in Sodium Chlor 0.9% Inj 500 ML IV.SIG SCH ×2 (04:09→15:03)
[2017-08-29] MEDS: oxyCODONE/Acetaminophen 10/325 Tablet PO PRN ×5 (04:10→22:03)
[2017-08-29] MEDS: Morphine Inj 4 MG/ML Vial IV.PUSH PRN ×3 (06:23→15:03)
[2017-08-29] MEDS: Senna/Docusate Sodium 8.6/50 MG Tablet PO SCH ×2 (10:23→22:05)
--- NOTE | 2017-08-29 15:46 | P.PN ---
Subjective Interval history: no comoplains of pain up and ambulating Physical Exam Vital signs: Vital Signs 08/28/17 16:00 08/28/17 20:00 08/29/17 00:00 Temperature 98.5 F 97.9 F 97.6 F Pulse Rate 59 L 60 60 Respiratory Rate 20 17 17 Blood Pressure 124/67 142/76 H 128/66 Pulse Oximetry 97 97 96 08/29/17 04:00 08/29/17 08:00 08/29/17 13:09 Temperature 97.8 F 97.9 F 98.2 F Pulse Rate 59 L 66 66 Respiratory Rate 17 20 20 Blood Pressure 126/73 147/77 H 139/71 Pulse Oximetry 99 100 99 Intake & Output 08/28/17 08/29/17 08/29/17 18:59 06:59 18:59 Intake Total 1820 / 1820 3998.0 / 3998.0 100 / 100 Output Total 400 / 400 600 / 600 Balance 1420 / 1420 3398.0 / 3398.0 100 / 100 Weight 102.3 kg Intake: IV 1100 / 1100 3335.0 / 3335.0 100 / 100 NS Inj 1,000 ML @ 100 mls/hr IV 1000 / 1000 2000 / 2000 .CONT .Q10H [facility] Rx#:[id number] Zosyn 4.5 GM Premix 4.5 gm In 100 / 100 300 / 300 100 / 100 100 ml @ 200 mls/hr IV.SIG Q6H [facility] Rx#:[id number] Vancomycin Inj 1,750 MG In NS 1035.0 / 1035.0 Inj 500 ML @ 250 mls/hr IV.SIG Q12H [facility] Rx#:[id number] Oral 720 / 720 663 / 663 Output: Urine 400 / 400 600 / 600 Other: # Voids 2 Narrative: awake and alert, no distreaa lungs- no rales regular rhythm abdomen soft right UE- forearm- dry incision, packing in place, dry better range of motion good radial pulses Results - Labs CBC & Chem 7: 08/26/17 13:33 08/28/17 09:00 Assessment and Plan - Assessment (1) Abscess of right hand Code(s): L02.511 - Cutaneous abscess of right hand Status: Acute (2) Cellulitis of right hand Code(s): L03.113 - Cellulitis of right upper limb Status: Acute - Plan Mr. Garcia is a 27 yo M admitted for R hand cellulitis Right hand abscess/cellulitis S/P I and D growing gram + cocci in clusters Impression: Associated with leukocytosis 08/25. Tetanus vacc <5 yrs ago. Hand surgery consulted; incision and drainage performed 08/25 with subsequent packing MRI hand 07/26- nonspecific swelling; no definite collections; correlation recommended -Hand surgery consulted -Continue soaking RUE, emesis basin with Betadine and soapy water x15 min TID ; replace wic -Continue antibiotics -Vancomycin -Zosyn -Will follow cultures - initial gram stain growing gram + cocci, ff final c and S still pending Tobacco abuse recommend smoking cessation Intermittent HTN- monitor- improved -Will give PRN Hydralazine and monitor DVT PPX -Ambulatory; will defer chemical PPX Code Status: Full code
[2017-08-30] MEDS: Piperacil/Tazo 4.5 GM Premix 4.5 GM/100 ML BAG IV.SIG SCH ×2 (00:38→06:11)
[2017-08-30] MEDS: Sod Chloride 0.9% Inj 1,000 ML IV.CONT SCH (04:10)
[2017-08-30] MEDS: Vancomycin Inj 1,750 MG in Sodium Chlor 0.9% Inj 500 ML IV.SIG SCH (04:10)
[2017-08-30] MEDS: oxyCODONE/Acetaminophen 10/325 Tablet PO PRN ×3 (04:11→12:32)
[2017-08-30] MEDS: Senna/Docusate Sodium 8.6/50 MG Tablet PO SCH (08:17)
--- NOTE | 2017-08-30 11:55 | P.PN ---
Subjective Interval history: doing well pain controlled afebrile Physical Exam Vital signs: Vital Signs 08/29/17 13:09 08/29/17 16:00 08/29/17 20:00 Temperature 98.2 F 97.9 F 98.4 F Pulse Rate 66 68 60 Respiratory Rate 20 20 16 Blood Pressure 139/71 127/66 153/72 H Pulse Oximetry 99 97 100 08/30/17 00:00 08/30/17 04:00 08/30/17 08:00 Temperature 98.0 F 98.0 F 98.3 F Pulse Rate 58 L 53 L 48 L Respiratory Rate 18 18 20 Blood Pressure 128/66 140/78 142/99 H Pulse Oximetry 99 99 97 Intake & Output 08/29/17 08/30/17 08/30/17 18:59 06:59 18:59 Intake Total 2677.5 / 2677.5 580 / 580 1000 / 1000 Balance 2677.5 / 2677.5 580 / 580 1000 / 1000 Weight 100.3 kg Intake: IV 1717.5 / 1717.5 100 / 100 1000 / 1000 NS Inj 1,000 ML @ 100 mls/hr IV 1000 / 1000 1000 / 1000 .CONT .Q10H [facility] Rx#:[id number] Zosyn 4.5 GM Premix 4.5 gm In 200 / 200 100 / 100 100 ml @ 200 mls/hr IV.SIG Q6H [facility] Rx#:[id number] Vancomycin Inj 1,750 MG In NS 517.5 / 517.5 Inj 500 ML @ 250 mls/hr IV.SIG Q12H [facility] Rx#:[id number] Oral 960 / 960 480 / 480 Other: # Voids 4 3 # Bowel Movements 2 0 Narrative: awake and alert, no distreaa lungs- no rales regular rhythm abdomen soft right UE- forearm- dry incision, pedges luca, no foul, wick out better range of motion good radial pulses Results - Labs CBC & Chem 7: 08/26/17 13:33 08/30/17 07:00 Laboratory Results - last 24 hr 08/30/17 07:00 Creatinine 1.12 Estimated GFR 79 L Assessment and Plan - Assessment (1) Abscess of right hand Code(s): L02.511 - Cutaneous abscess of right hand Status: Acute (2) Cellulitis of right hand Code(s): L03.113 - Cellulitis of right upper limb Status: Acute - Plan Mr. Garcia is a 27 yo M admitted for R hand cellulitis Right hand abscess/cellulitis S/P I and D growing gram + cocci in clusters Impression: Associated with leukocytosis 08/25. Tetanus vacc <5 yrs ago. Hand surgery consulted; incision and drainage performed 08/25 with subsequent packing MRI hand 07/26- nonspecific swelling; no definite collections; correlation recommended -Hand surgery consulted -Continue soaking RUE, emesis basin with Betadine and soapy water x15 min TID ; replace wic -Continue antibiotics -Vancomycin -Zosyn -Will follow cultures - initial gram stain growing gram + cocci, ff final c and S DC home today on clindaymcyin 450 mg po q 8 x 7 days prn pain meds Tobacco abuse recommend smoking cessation Intermittent HTN- monitor- improved -Will give PRN Hydralazine and monitor DVT PPX -Ambulatory; will defer chemical- patient up and ambulating Code Status: Full code DC homet today- OP ff up with a PCP- CM to assist wound care instructions
--- NOTE | 2017-08-30 12:45 | P.DS ---
Date of admission: 08/25/17 09:24 Primary care physician: No Primary Care Physician Brief History from admission: Patient is a 27-year-old -[place] gentleman. Who was initially seen in the hospital yesterday and was admitted to family medicine. Except the patient decided to leave AGAINST MEDICAL ADVICE yesterday for personal reasons. He returns today and apologizes for the fact that he left yesterday. Still has pain and possible abscess to the right hand complains of lots of pain helped with some cold therapy, worse with moving it and touching it. Patient states that he does not use IV drug use. Patient was given antibiotics yesterday, but again left medical advice. He now returns again today and will be started on antibiotics will get an MRI of the right hand and will consult hand surgery DS: Diagnosis - Discharge Diagnosis (1) Abscess of right hand Status: Acute (2) Cellulitis of right hand Status: Acute DS: Medications - Discharge Medications Prescriptions: oxycodone-acetaminophen 1 tab PO Q6HR PRN #30 tab PRN Reason: Pain Scale 6 To 10 DS: Summary Hospital Course: Mr. Garcia is a 27 yo M admitted for R hand cellulitis Right hand abscess/cellulitis S/P I and D growing gram + cocci in clusters Impression: Associated with leukocytosis 08/25. Tetanus vacc <5 yrs ago. Hand surgery consulted; incision and drainage performed 08/25 with subsequent packing MRI hand 07/26- nonspecific swelling; no definite collections; correlation recommended -Hand surgery consulted -Continue soaking RUE, emesis basin with Betadine and soapy water x15 min TID ; replace wic -Continue antibiotics -Vancomycin -Zosyn -Will follow cultures - initial gram stain growing gram + cocci, ff final c and S DC home today on clindaymcyin 450 mg po q 8 x 7 days prn pain meds Tobacco abuse recommend smoking cessation Intermittent HTN- monitor- improved -Will give PRN Hydralazine and monitor DVT PPX -Ambulatory; will defer chemical- patient up and ambulating - Time Spent with Patient Total time spent providing and/or coordinating discharge services: - Quality: VTE Deep Vein Thrombosis/Pulmonary Embolism Present on Admission: No Exam Vital signs: Vital Signs 08/29/17 13:09 08/29/17 16:00 08/29/17 20:00 Temperature 98.2 F 97.9 F 98.4 F Pulse Rate 66 68 60 Respiratory Rate 20 20 16 Blood Pressure 139/71 127/66 153/72 H Pulse Oximetry 99 97 100 08/30/17 00:00 08/30/17 04:00 08/30/17 08:00 Temperature 98.0 F 98.0 F 98.3 F Pulse Rate 58 L 53 L 48 L Respiratory Rate 18 18 20 Blood Pressure 128/66 140/78 142/99 H Pulse Oximetry 99 99 97 Intake & Output 08/29/17 08/30/17 08/30/17 18:59 06:59 18:59 Intake Total 2677.5 / 2677.5 580 / 580 1000 / 1000 Balance 2677.5 / 2677.5 580 / 580 1000 / 1000 Weight 100.3 kg Intake: IV 1717.5 / 1717.5 100 / 100 1000 / 1000 NS Inj 1,000 ML @ 100 mls/hr IV 1000 / 1000 1000 / 1000 .CONT .Q10H MARTINA Rx#:[id number] Zosyn 4.5 GM Premix 4.5 gm In 200 / 200 100 / 100 100 ml @ 200 mls/hr IV.SIG Q6H MARTINA Rx#:[id number] Vancomycin Inj 1,750 MG In NS 517.5 / 517.5 Inj 500 ML @ 250 mls/hr IV.SIG Q12H MARTINA Rx#:[id number] Oral 960 / 960 480 / 480 Other: # Voids 4 3 # Bowel Movements 2 0 Results Procedures completed during hospitalization: I and D- right hand Labs on day of discharge: Labs from last 24 hours 08/30/17 07:00 Creatinine 1.12 Estimated GFR 79 L - Impressions ITS Impressions Hand MRI 08/25/17 00:00 CONCLUSION: 1. Diffuse nonspecific soft tissue swelling and edema throughout the subcutaneous soft tissues along the dorsum of the hand. No definite loculated or drainable fluid collections are demonstrated. 2. Nonspecific possible soft tissue injury or laceration to the subcutaneous soft tissues along the dorsum of the hand between the first and second metacarpals. Recommend correlation with direct visualization. Discharge Plan - Discharge Disposition Patient Disposition: 01 Discharge Home - Discharge Condition Condition: Good - Discharge Order Discharge Orders: Discharge Order (Routine); Ordered 08/30/17 Ordered By: Rm Mensah - Physicians Team Primary Care Provider: Primary Care Physici,No Attending Provider: Rm Mensah Other Providers: Ajay Wild MD ; [facility],Insurance
[2017-08-31] MEDS ORDERED: Pharmacy Ordered Lab Info OTHER ONE (03:45)
== END 2017-08-30 14:53 | disposition home or self-care (01) ==
LOC: NEDA 05:44 → NEPC 05:44 → NEDA 14:04 → N04 14:21
PROVIDERS: ADMIT Internal Medicine; ATTEND Internal Medicine